=== PATIENT | female | born 1975 | race Caucasian/White ===

== ENCOUNTER 2021-09-07 10:07 | Emergency (ER) | payer OTHER, SELFPAY ==
--- NOTE | ~2021-09-07 | US_ITS ---
EXAMINATION: US soft tissue LE RT INDICATION: Left calf pain TECHNIQUE: Targeted high-resolution ultrasound is performed in the area of clinical concern. COMPARISON: None available FINDINGS: There is moderate soft tissue edema in the area of clinical interest. An approximately 12 m m x 5 mm fluid collection is seen in the subcutaneous tissues which appears to connect to a tract to the skin surface. No large drainable abscess is identified. IMPRESSION: 1. Tiny focal fluid collection in the left calf in the area of clinical concern with apparent tract t o the skin surface, likely soft tissue infection with associated focal fluid collection. Reviewed, dictated and finalized at location [facility]. IMPRESSION: 1. Tiny focal fluid collection in the left calf in the area of clinical concern with apparent tract to the skin surface, likely soft tissue infection with ass ociated focal fluid collection.
[2021-09-07 10:26] VITALS: BP 122/64; PULSE 97; RESP 16; TEMP 36.4; O2SAT 96
--- NOTE | 2021-09-07 12:36 | ED.SKABFB ---
HPI - Skin/Abscess/Foreign Bdy General Chief complaint: Skin/Abscess/Foreign Body Stated complaint: insect bite to calf Time Seen by Provider: 09/07/21 12:19 Source: RN notes reviewed History of Present Illness HPI narrative: Patient presents emergency department from home for right calf pain. Patient states that 2 nights ago she awoke with a painful bump over her right posterior calf she is unsure if she had bit or stung by any insects states initially the area was very itchy she states that since that time the area has become hard and is tender to palpation with redness extending down her lower leg she denies any fevers or chills she denies any known trauma or injury to the area she denies any pain of the knee or ankle states she did take Tylenol this morning with minimal relief Related Data Allergies Allergy/AdvReac Type Severity Reaction Status Date / Time No Known Allergies Allergy Verified 09/07/21 11:15 Review of Systems Review of Systems: Gen.: Denies fevers or chills Respiratory: Denies shortness of breath CV: Denies chest pain GI: Denies abdominal pain nausea, emesis Musculoskeletal: Denies joint pain Neuro: Denies numbness, tingling, weakness or focal weakness Skin: See HPI Except as documented, all other systems reviewed and negative PMFSH Past Medical History Medical History (Updated 09/07/21 @ 14:13 by Mark Lopez DO) Hypertension Social History Social History (Updated 09/07/21 @ 12:37 by Mark Lopez DO) Smoking status: Never smoker Exam Narrative: APPEARANCE: No acute distress, nontoxic, resting in bed Eyes: EOMI HEENT: Normocephalic, atraumatic, RESPIRATORY: No respiratory distress MUSCULOSKELETAl: The right posterior calf has a firm red raised area that has no fluctuance and has no active drainage there does appear to be a small head of pus with no active drainage erythema extends around the right calf down the right posterior leg but stops proximal to the ankle erythema is not circumferential and does not go to the lateral medial or anterior aspect of the leg there is no streaking up the leg dorsalis pedis pulse 2+ neurovascular intact NEURO: Awake and alert. Following commands, speech normal, no focal deficits SKIN:: Warm, dry. Normal Color no rash or lesions Course Course Emergency Course: Discussed with patient results of workup and diagnosis. Discussed need for follow-up with primary care, proper use of medication, and reasons to return to the emergency department. Patient understands and agrees to current treatment plan Vital Signs Vital signs: Vital Signs Temperature 97.5 F L 09/07/21 10:26 Pulse Rate 97 09/07/21 10:26 Respiratory Rate 16 09/07/21 10:26 Blood Pressure 122/64 09/07/21 10:26 Pulse Oximetry 96 09/07/21 10:26 Oxygen Delivery Room Air 09/07/21 10:26 Temperature 97.5 F L 09/07/21 10:26 Pulse Rate 97 09/07/21 10:26 Respiratory Rate 16 09/07/21 10:26 Blood Pressure 122/64 09/07/21 10:26 Pulse Oximetry 96 09/07/21 10:26 Oxygen Delivery Room Air 09/07/21 10:26 Procedures Abscess I/D other: Abcess I&D Additional Comments: Verbal consent was obtained prior to procedure. The abscess was incised with a 18-gauge needle to deroofed the top of the abscess. There was return of approximately 1-2 mL of thick purulent drainage. Patient tolerated the procedure well MDM - Skin/Abscess/Foreign Bdy Lab Data Result diagrams: 09/07/21 13:12 09/07/21 13:12 Labs: Lab Results 09/07/21 09/07/21 09/07/21 Range/Units 13:12 13:12 13:12 WBC 11.1 H (4.5-10.0) K/mm3 RBC 3.89 L (4.2-5.4) M/mm3 Hgb 11.6 L (12.0-15.0) g/dL Hct 38.1 (37.0-47.0) % MCV 97.9 (80-100) fl MCH 29.8 (26-34) pg MCHC 30.4 L (32-36) g/dl RDW 15.0 H (11.5-14.5) % Plt Count 319 (150-375) k/mm3 MPV 9.5 (7.4-10.4) fl Immature Gran % (Auto) 0.5 (0-0.5) % Neut % (Auto) 78
[2021-09-07] MEDS: IBUPROFEN 600 MG TABLET PO (13:08)
[2021-09-07 13:20] LABS: Basophils Percent Auto 0.3 % (0.2-1.2); Eosinophils Absolute Auto 0.1 K/mm3 (0-0.3); Eosinophils Percent Auto 0.6 % (0-4.4); Hematocrit 38.1 % (37.0-47.0); Hemoglobin 11.6 g/dL (12.0-15.0); Immature Granulocyte Absolute 0.06 K/mm3 (0.00-0.031); Immature Granulocyte Percent A 0.5 % (0-0.5); Lymphocytes Absolute Auto 1.38 K/mm3 (0.9-3.2); Lymphocytes Percent Auto 12.5 % (18.3-44.2); Mean Corpuscular HGB Conc 30.4 g/dl (32-36); Mean Corpuscular Hemoglobin 29.8 pg (26-34); Mean Corpuscular Volume 97.9 fl (80-100); Mean Platelet Volume 9.5 fl (7.4-10.4); Monocytes Absolute Auto 0.9 K/mm3 (0.1-0.6); Monocytes Percent Auto 7.9 % (2.6-8.5); Neutrophils Absolute Auto 8.7 K/mm3 (1.3-6.7); Neutrophils Percent Auto 78.2 % (45.5-73.1); Platelet Count Result 319 k/mm3 (150-375); Red Blood Count 3.89 M/mm3 (4.2-5.4); White Blood Count 11.1 K/mm3 (4.5-10.0)
[2021-09-07 13:28] LABS: Alanine Aminotransferase 25 U/L (6-35); Albumin Level 4.3 g/dL (3.5-5.1); Alkaline Phosphatase 95 U/L (38-126); Anion Gap 5 mmol/L (8-16); Aspartate Amino Transferase 23 U/L (14-36); Bilirubin,Total 0.3 mg/dL (0.2-1.3); Blood Urea Nitrogen 14 mg/dL (7-17); Calcium 9.3 mg/dL (8.4-10.2); Carbon Dioxide 29 mmol/L (22-30); Chloride 104 mmol/L (98-107); Estimated CRCL calculation 84 ml/min; Estimated Glomerular Filt Rate > 60; Glucose 126 mg/dL (65-110); Potassium 4.2 mmol/L (3.4-5.0); Sodium 138 mmol/L (137-145)
[2021-09-07] MEDS: CLINDAMYCIN HCL 150 MG CAP 450 MG PO (13:43)
[2021-09-07 14:22] VITALS: BP 130/70; PULSE 94; RESP 20; O2SAT 95
== END 2021-09-07 12:22 | disposition home or self-care (01) ==
PROVIDERS: Emergency Provider Emergency Medicine; PCP Nurse Practitioner Family
DX: L03.115 Cellulitis of right lower limb (principal); I10 Essential (primary) hypertension
CPT/HCPCS: 10060; 10160; 36415; 76882; 80053; 83605; 85025; 99284; A9270

== ENCOUNTER 2021-09-10 00:56 | Inpatient (IN) | payer OTHER, SELFPAY ==
[2021-09-10] VITALS (7 sets, daily range): BP systolic 129–149; BP diastolic 47–75; PULSE 73–97; RESP 16–18; TEMP 36.1–36.4; O2SAT 95–97
--- NOTE | ~2021-09-10 | US_ITS ---
US soft tissue LE RT DATE: 09/13/2021 12:03 INDICATION: Calf pain, right calf fluid collection TECHNIQUE: Real-time and color flow imaging of the soft tissues of the right calf COMPARISON: 09/07/2021 ultrasound of the soft tissues of the right lower extremity FINDINGS: There is soft tissue edema of the calf, extending into the ankle. There is an approximately 4 x 5.4 mm area of prominently vascular soft tissue surrounded by a rim of fluid. IMPRESSION: Small prevascular soft tissue density in the area of interest with peripheral rim of flui d, posterior right calf, with edema, this area extending into the calf Reviewed, dictated and finalized at [facility]. Reviewed, dictated and finalized at location [facility]. IMPRESSION: Small prevascular soft tissue density in the area of interest with peripheral rim of fluid, posterior right calf, with edema, this area extending into the calf
--- NOTE | 2021-09-10 01:22 | ED.GENADULT ---
HPI - General Adult General Chief complaint: Skin/Abscess/Foreign Body Stated complaint: R leg pain/redness, celllitis Time Seen by Provider: 09/10/21 01:14 History of Present Illness HPI narrative: 46-year-old female presented the emergency department for evaluation of worsening infection to her right lower leg. Patient was evaluated on Thursday for an abscess. Abscess was draining spontaneously, abscess was manipulated by the physician and had further discharge. Patient was started on clindamycin. Patient states since Thursday she has had worsening redness and swelling of the lower extremities. Patient states that she did have erythema down her calf but did not go past her ankle. Patient states that the redness has gone to her foot and is now circumferential for the lower extremity. Related Data Home Medications Medication Instructions Recorded Confirmed 24Hour Allergy 1 tablet PO DAILY 09/10/21 09/10/21 Adults Multivitamin 1 tablet PO DAILY 09/10/21 09/10/21 duloxetine 30 mg capsule,delayed 2 cap PO HS 09/10/21 09/10/21 release fluticasone propionate 50 1 spray intranasal DAILY 09/10/21 09/10/21 mcg/actuation nasal spray,suspension lisinopril 20 mg tablet 20 mg PO DAILY 09/10/21 09/10/21 Allergies Allergy/AdvReac Type Severity Reaction Status Date / Time No Known Allergies Allergy Verified 09/10/21 01:17 Review of Systems Review of Systems: CONSTITUTIONAL: Denies fever, chills, or sweats. EYES: Denies visual changes, redness, or discharge. ENT: Denies rhinorrhea, congestion, sore throat, or otalgia. CARDIOVASCULAR: Denies chest pain, palpitations, or edema. RESPIRATORY: Denies cough or dyspnea. GASTROINTESTINAL: Denies abdominal pain, nausea, vomiting, or diarrhea. GENITOURINARY: Denies dysuria or hematuria. SKIN: See HPI MUSCULOSKELETAL: Denies back pain, joint pain, or myalgia. NEUROLOGIC: Denies headache, numbness, or weakness. [facility] Past Medical History Medical History (Updated 09/10/21 @ 02:55 by Max Hughes MD) Hypertension Social History Social History (Updated 09/07/21 @ 12:37 by Mark Lopez DO) Smoking status: Never smoker Alcohol intake: current Substance use: never Spiritual care concerns: No Exam Narrative: APPEARANCE: Well appearing, no pain, no distress, well-nourished. HEAD: normocephalic, atraumatic. EYES: PERRLA/EOMI, conjunctivae clear. NOSE: Normal no drainage NECK: Supple. No adenopathy, no masses. RESPIRATORY: Airway patent, respirations nonlabored. Clear to auscultation bilaterally, no rales, rhonchi, wheezing. CARDIOVASCULAR: Regular rate and rhythm without murmurs rubs or gallops. ABDOMINAL: Soft, nontender, nondistended, normal bowel sounds MUSCULOSKELETAL: Moves all extremities. Strength/ROM intact, No edema, No calf tenderness. NEURO: Alert. Cranial nerves II through XII intact. Good gait. Good coordination SKIN: Erythema on right lower extremity is spread from proximal calf down to foot and is circumferential anteriorly PSYCHIATRIC: Normal affect/mood. Course Course Emergency Course: Patient was started on Vanco and cefazolin due to her lack of response to the clindamycin. Bedside ultrasound showed an abscess amenable to drainage. This was incised with 11 blade and packed with iodoform gauze. A small amount of purulent discharge was obtained. Case was discussed with the hospitalist and patient was admitted for further IV antibiotics. Vital Signs Vital signs: Vital Signs Temperature 97.6 F 09/10/21 01:02 Pulse Rate 97 09/10/21 01:02 Respiratory Rate 16 09/10/21 01:02 Blood Pressure 149/75 H 09/10/21 01:02 Pulse Oximetry 97 09/10/21 01:02 Oxygen Delivery Room Air 09/10/21 01:02 Temperature 96.9 F L 09/10/21 06:00 Pulse Rate 73 09/10/21 06:00 Respiratory Rate 16 09/10/21 06:00 Blood Pressure 134/65 09/10/21 06:00 Pulse Oximetry 96 09/10/21 06:00 Oxygen Delivery Room Air 09/10/21 01:02
[2021-09-10 01:37] LABS: Basophils Percent Auto 0.4 % (0.2-1.2); Eosinophils Absolute Auto 0.2 K/mm3 (0-0.3); Eosinophils Percent Auto 3.1 % (0-4.4); Hematocrit 33.9 % (37.0-47.0); Hemoglobin 10.6 g/dL (12.0-15.0); Immature Granulocyte Absolute 0.05 K/mm3 (0.00-0.031); Immature Granulocyte Percent A 0.7 % (0-0.5); Lymphocytes Absolute Auto 1.64 K/mm3 (0.9-3.2); Lymphocytes Percent Auto 21.8 % (18.3-44.2); Mean Corpuscular HGB Conc 31.3 g/dl (32-36); Mean Corpuscular Hemoglobin 29.9 pg (26-34); Mean Corpuscular Volume 95.5 fl (80-100); Mean Platelet Volume 9.1 fl (7.4-10.4); Monocytes Absolute Auto 0.6 K/mm3 (0.1-0.6); Monocytes Percent Auto 7.6 % (2.6-8.5); Neutrophils Percent Auto 66.4 % (45.5-73.1); Platelet Count Result 328 k/mm3 (150-375); Red Blood Count 3.55 M/mm3 (4.2-5.4); Red Cell Distribution Width 14.4 % (11.5-14.5); White Blood Count 7.5 K/mm3 (4.5-10.0)
[2021-09-10 01:47] LABS: Alanine Aminotransferase 30 U/L (6-35); Alkaline Phosphatase 100 U/L (38-126); Anion Gap 7 mmol/L (8-16); Aspartate Amino Transferase 27 U/L (14-36); Bilirubin,Total < 0.1 mg/dL (0.2-1.3); Blood Urea Nitrogen 11 mg/dL (7-17); Calcium 9.5 mg/dL (8.4-10.2); Carbon Dioxide 25 mmol/L (22-30); Chloride 106 mmol/L (98-107); Estimated CRCL calculation 106 ml/min; Estimated Glomerular Filt Rate > 60; Glucose 116 mg/dL (65-110); Lactic Acid Reflex 0.9 mmol/L (0.7-2.0); Potassium 3.8 mmol/L (3.4-5.0); Sodium 138 mmol/L (137-145)
--- NOTE | 2021-09-10 02:53 | PC.NURSE ---
Pt requesting pain medication, EDP Saul notified.
--- NOTE | 2021-09-10 03:03 | PC.NURSE ---
EDP at bedside with ultrasound
--- NOTE | 2021-09-10 03:52 | PC.NURSE ---
EDP at bedside for I&D
[2021-09-10 04:25] LABS: SARS-CoV-2 RNA PCR Negative
--- NOTE | 2021-09-10 04:48 | ADMGEN ---
This patient, Jennifer Winter, was admitted to [facility] Surg Room 330-02. Patient/family oriented to hospital policies and general routines including ID bracelet, bed and alarms, visiting hours, pain management, procedures, bathroom and other care routines, personal items, smoking policy, room service/diet, and visiting hours. Information on how to activate the Rapid Response Team has been discussed. Patient/Family are encouraged to report perceived risks to care and to ask questions if they do not understand what they are told or what they should do.
[2021-09-10] MEDS: HYDROcodone/acetaminophen (*CRX) 5-325 MG TABLET 1 TAB PO ×3 (09:40→19:34)
[2021-09-10] MEDS: MULTIVITAMINS THERAPEUTIC TAB (*BKC) 1 TABLET PO (10:26)
[2021-09-10] MEDS: FLUTICASONE PROPIONATE 0.05% NA SPR 16 GM BTL (*BKC) 1 SPRAY NASAL (10:27)
[2021-09-10] MEDS: lisinopriL 20 MG TABLET PO (10:27)
[2021-09-10] MEDS: LORATADINE 10 MG TABLET PO (10:28)
[2021-09-10] MEDS: CYCLOBENZAPRINE HCL 10 MG TABLET PO (13:22)
--- NOTE | 2021-09-10 17:40 | PM.IMHP ---
H&P: HPI History of Present Illness Date/Time: 09/10/21 17:40 Chief Complaint: abscess and cellulitis right lower extremity Narrative: HPI narrative: 46-year-old female presented the emergency department for evaluation of worsening infection to her right lower leg.? Patient was evaluated on Thursday for an abscess.? Abscess was draining spontaneously, abscess was manipulated by the physician and had further discharge.? Patient was started on clindamycin.? Patient states since Thursday she has had worsening redness and swelling of the lower extremities.? Patient states that she did have erythema down her calf but did not go past her ankle.? Patient states that the redness has gone to her foot and is now circumferential for the lower extremity. patient continue to come of pain and swelling and right lower extremity, denies any fever, patient being treated cefazolin and vancomycin, unfortunate wound culture was not collected at the time of I and D, will follow on blood cultures and further recommendation to follow will continue to monitor. patient admitted inpatient, patient will stay in hospital for 2 midnights with abscess and cellulitis Review of Systems Review of Systems: CONSTITUTIONAL: Denies fever, chills, or sweats. EYES: Denies visual changes, redness, or discharge. ENT: Denies rhinorrhea, congestion, sore throat, or otalgia. CARDIOVASCULAR: Denies chest pain, palpitations, or edema. RESPIRATORY: Denies cough or dyspnea. GASTROINTESTINAL: Denies abdominal pain, nausea, vomiting, or diarrhea. GENITOURINARY: Denies dysuria or hematuria. SKIN: See HPI MUSCULOSKELETAL: Denies back pain, joint pain, or myalgia. NEUROLOGIC: Denies headache, numbness, or weakness. [facility] Past Medical History Medical History (Updated 09/10/21 @ 02:55 by Max Hughes MD) Hypertension Social History Social History (Updated 09/07/21 @ 12:37 by Mark Lopez DO) Smoking status: Never smoker Alcohol intake: current Substance use: never Spiritual care concerns: No Meds Home Medications and Allergies Home Medications Medication Instructions Recorded Confirmed Type clindamycin HCl 150 mg capsule 450 mg PO Q8H 10 days #90 caps 09/07/21 09/10/21 Rx ibuprofen 600 mg tablet (IBU) 600 mg PO Q6H PRN pain #20 tabs 09/07/21 09/10/21 Rx 24Hour Allergy 1 tablet PO DAILY 09/10/21 09/10/21 History Adults Multivitamin 1 tablet PO DAILY 09/10/21 09/10/21 History duloxetine 30 mg capsule,delayed 2 cap PO HS 09/10/21 09/10/21 History release fluticasone propionate 50 1 spray intranasal DAILY 09/10/21 09/10/21 History mcg/actuation nasal spray,suspension lisinopril 20 mg tablet 20 mg PO DAILY 09/10/21 09/10/21 History Allergies Allergy/AdvReac Type Severity Reaction Status Date / Time No Known Allergies Allergy Verified 09/10/21 01:17 Vital Signs Vital Signs - 24 hr 09/10/21 01:02 09/10/21 02:54 09/10/21 04:13 Temperature 97.6 F Pulse Rate 97 86 76 Respiratory Rate 16 18 16 Blood Pressure 149/75 H 134/54 L 149/70 H Pulse Oximetry 97 95 97 Oxygen Delivery Room Air 09/10/21 06:00 09/10/21 14:17 09/10/21 09:00 Temperature 96.9 F L 97 F L Pulse Rate 73 82 Respiratory Rate 16 16 Blood Pressure 134/65 129/47 L Pulse Oximetry 96 97 Oxygen Delivery Room Air Exam Narrative: morbidly obese Patient is comfortable, NAD HEENT: eyes are clear and none icteric LUNGS: normal respiratory effort ABD: distended Lower extremities: no edema SKIN: nonjaundiced Neuro: grossly intact. H&P: Results Labs Labs: Short CBC 09/10/21 Range/Units 01:30 WBC 7.5 (4.5-10.0) K/mm3 Hgb 10.6 L (12.0-15.0) g/dL Hct 33.9 L (37.0-47.0) % Plt Count 328 (150-375) k/mm3 BMP 09/10/21 01:30 Sodium 138 Potassium 3.8 Chloride 106 Carbon Dioxide 25 BUN 11 Creatinine 0.70 Glucose 116 H Calcium 9.5 Liver Function 09/10/21 Range/Units 01:30 Total Bilirub
[2021-09-10] MEDS: HEPARIN SODIUM 5,000 UNITS/ML VIAL 5000 UNITS SUB-Q (20:14)
[2021-09-10] MEDS: DULoxetine HCL 60 MG CAPSULE.DR PO (20:14)
[2021-09-11] MEDS: HYDROcodone/acetaminophen (*CRX) 5-325 MG TABLET 1 TAB PO ×3 (03:08→13:34)
[2021-09-11 05:56] VITALS: BP 138/70; PULSE 75; RESP 16; TEMP 36.4; O2SAT 95
[2021-09-11 06:28] LABS: Hematocrit 34.1 % (37.0-47.0); Hemoglobin 10.7 g/dL (12.0-15.0); Mean Corpuscular HGB Conc 31.4 g/dl (32-36); Mean Corpuscular Hemoglobin 29.8 pg (26-34); Mean Platelet Volume 9.5 fl (7.4-10.4); Platelet Count Result 359 k/mm3 (150-375); Red Blood Count 3.59 M/mm3 (4.2-5.4); Red Cell Distribution Width 14.3 % (11.5-14.5); White Blood Count 5.8 K/mm3 (4.5-10.0)
[2021-09-11 06:33] LABS: Anion Gap 6 mmol/L (8-16); Blood Urea Nitrogen 9 mg/dL (7-17); Calcium 8.9 mg/dL (8.4-10.2); Carbon Dioxide 28 mmol/L (22-30); Chloride 103 mmol/L (98-107); Estimated CRCL calculation 106 ml/min; Estimated Glomerular Filt Rate > 60; Glucose 131 mg/dL (65-110); Sodium 137 mmol/L (137-145)
[2021-09-11] MEDS: FLUTICASONE PROPIONATE 0.05% NA SPR 16 GM BTL (*BKC) 1 SPRAY NASAL (08:11)
[2021-09-11] MEDS: LORATADINE 10 MG TABLET PO (08:11)
[2021-09-11] MEDS: MULTIVITAMINS THERAPEUTIC TAB (*BKC) 1 TABLET PO (08:11)
[2021-09-11] MEDS: HEPARIN SODIUM 5,000 UNITS/ML VIAL 5000 UNITS SUB-Q ×2 (08:11→21:56)
[2021-09-11] MEDS: lisinopriL 20 MG TABLET PO (08:13)
--- NOTE | 2021-09-11 13:08 | PM.IMPN ---
Progress Note: A&P Assessment and Plan (1) Cellulitis: Qualifiers: Laterality: right Site of cellulitis: extremity Site of cellulitis of extremity: lower extremity Qualified Code(s): L03.115 - Cellulitis of right lower limb Code(s): L03.90 - Cellulitis, unspecified Status: Acute Assessment and Plan: Continue IV antibiotics. (2) Abscess of skin or subcutaneous tissue: Qualifiers: Laterality: right Site of cutaneous abscess: extremity Site of cutaneous abscess of extremity: lower extremity Qualified Code(s): L02.415 - Cutaneous abscess of right lower limb Code(s): L02.91 - Cutaneous abscess, unspecified Status: Acute Assessment and Plan: spontaneous drainage continue IV antibiotics (3) Hypertension: Code(s): I10 - Essential (primary) hypertension Status: Acute Assessment and Plan: monitor blood pressure Subjective Date/time seen: 09/11/21 13:08 no new complaints. Exam Narrative: morbidly obese Patient is comfortable, NAD HEENT: eyes are clear and none icteric LUNGS: normal respiratory effort ABD: distended Lower extremities: no edema SKIN: nonjaundiced Neuro: grossly intact. Objective Data Vital Signs Vital Signs: Vital Signs - 24 hr 09/10/21 14:17 09/10/21 21:42 09/10/21 20:00 Temperature 97 F L 97.5 F L Pulse Rate 82 82 82 Respiratory Rate 16 18 18 Blood Pressure 129/47 L 145/73 H Pulse Oximetry 97 97 97 Oxygen Delivery Room Air 09/11/21 05:56 09/11/21 08:00 Temperature 97.6 F Pulse Rate 75 Respiratory Rate 16 Blood Pressure 138/70 Pulse Oximetry 95 Oxygen Delivery Room Air Intake/Output Intake/Output: Intake & Output 09/08/21 09/09/21 09/10/21 09/11/21 23:59 23:59 23:59 23:59 Intake Total 2430 200 Balance 2430 200 Meds/Results Medications: Active Medications Generic Name Dose Route Start Last Admin Trade Name Freq PRN Reason Stop Dose Admin Hydrocodone Bitart/Acetaminophen 1 tab 09/10/21 15:24 09/11/21 08:06 Hydrocodone/Acetaminophen (*Crx) 5-325 Mg Tablet PO 1 tab Q4H PRN Administration Pain Rated 4-6 Cyclobenzaprine HCl 10 mg 09/10/21 09:15 09/10/21 13:22 Cyclobenzaprine Hcl 10 Mg Tablet PO 10 mg Q8H PRN Administration Muscle Spasm Duloxetine HCl 60 mg 09/10/21 21:00 09/10/21 20:14 Duloxetine Hcl 60 Mg Capsule.Dr PO 60 mg HS MASON Administration Fluticasone Propionate 1 spray 09/10/21 09:25 09/11/21 08:11 Fluticasone Propionate 0.05% Na Spr 16 Gm Btl (*Bkc) NASAL 1 spray DAILY MASON Administration Heparin Sodium (Porcine) 5,000 units 09/10/21 21:00 09/11/21 08:11 Heparin Sodium 5,000 Units/Ml Vial SUB-Q 5,000 units Q12HR MASON Administration Vancomycin HCl 1,750 mg in 500 mls @ 250 mls/hr 09/10/21 02:00 09/11/21 02:00 Vancomycin 1,750 Mg/D5w 500 Ml IVPB 250 mls/hr Q12H MASON Administration Cefazolin Sodium 1 gm in 50 mls @ 100 mls/hr 09/10/21 14:00 09/11/21 05:09 Ancef 1 Gm/D5w 50 Ml Pm IVPB 100 mls/hr Q8H MASON Administration Lisinopril 20 mg 09/10/21 09:25 09/11/21 08:13 Lisinopril 20 Mg Tablet PO 20 mg DAILY MASON Administration Loratadine 10 mg 09/10/21 09:30 09/11/21 08:11 Loratadine 10 Mg Tablet PO 10 mg QAM MASON Administration Multivitamins Therapeutic 1 tablet 09/10/21 09:20 09/11/21 08:11 Multivitamins Therapeutic Tab (*Bkc) PO 1 tablet DAILY MASON Administration Ondansetron HCl 4 mg 09/10/21 02:55 Ondansetron Inj 4 Mg/2 Ml Vial IV PUSH Q4H PRN Nausea Labs Labs: Laboratory Results - last 24 hr 09/11/21 09/11/21 05:51 05:51 WBC 5.8 RBC 3.59 L Hgb 10.7 L Hct 34.1 L MCV 95.0 MCH 29.8 MCHC 31.4 L RDW 14.3 Plt Count 359 MPV 9.5 Sodium 137 Potassium 4.0 Chloride 103 Carbon Dioxide 28 Anion Gap 6 L BUN 9 Creatinine 0.70 Estim Creat Clear Calc 106 Estimated GFR > 60
[2021-09-11 13:31] LABS: Vancomycin Trough 12.7 ug/mL (10.0-20.0)
[2021-09-11 14:00] VITALS: BP 89/58; PULSE 77; RESP 20; TEMP 36; O2SAT 98
[2021-09-11] MEDS: HYDROcodone/acetaminophen (*CRX) 7.5-325 MG TABLET 1 TAB PO (18:03)
[2021-09-11 20:58] VITALS: BP 112/69; PULSE 79; RESP 18; TEMP 36.4; O2SAT 96
[2021-09-11] MEDS: DULoxetine HCL 60 MG CAPSULE.DR PO (21:56)
[2021-09-11] MEDS: CYCLOBENZAPRINE HCL 10 MG TABLET PO (22:08)
[2021-09-12] MEDS: HYDROcodone/acetaminophen (*CRX) 7.5-325 MG TABLET 1 TAB PO ×3 (01:36→17:29)
[2021-09-12 05:33] VITALS: BP 129/79; PULSE 81; RESP 18; TEMP 36.1; O2SAT 95
[2021-09-12 07:18] LABS: Hematocrit 36.8 % (37.0-47.0); Hemoglobin 11.3 g/dL (12.0-15.0); Mean Corpuscular HGB Conc 30.7 g/dl (32-36); Mean Corpuscular Hemoglobin 30.1 pg (26-34); Mean Corpuscular Volume 97.9 fl (80-100); Mean Platelet Volume 9.2 fl (7.4-10.4); Platelet Count Result 359 k/mm3 (150-375); Red Blood Count 3.76 M/mm3 (4.2-5.4); Red Cell Distribution Width 14.4 % (11.5-14.5); White Blood Count 6.8 K/mm3 (4.5-10.0)
[2021-09-12 07:24] LABS: Anion Gap 3 mmol/L (8-16); Blood Urea Nitrogen 9 mg/dL (7-17); Calcium 8.9 mg/dL (8.4-10.2); Carbon Dioxide 30 mmol/L (22-30); Chloride 103 mmol/L (98-107); Estimated CRCL calculation 122 ml/min; Estimated Glomerular Filt Rate > 60; Glucose 108 mg/dL (65-110); Potassium 3.9 mmol/L (3.4-5.0); Sodium 136 mmol/L (137-145)
[2021-09-12] MEDS: HEPARIN SODIUM 5,000 UNITS/ML VIAL 5000 UNITS SUB-Q ×2 (09:19→20:52)
[2021-09-12] MEDS: MULTIVITAMINS THERAPEUTIC TAB (*BKC) 1 TABLET PO (09:19)
[2021-09-12] MEDS: lisinopriL 20 MG TABLET PO (09:19)
[2021-09-12] MEDS: LORATADINE 10 MG TABLET PO (09:19)
[2021-09-12] MEDS: FLUTICASONE PROPIONATE 0.05% NA SPR 16 GM BTL (*BKC) 1 SPRAY NASAL (09:23)
[2021-09-12] MEDS: HYDROcodone/acetaminophen (*CRX) 5-325 MG TABLET 1 TAB PO ×2 (12:30→21:51)
[2021-09-12 14:00] VITALS: BP 133/69; PULSE 77; RESP 14; TEMP 36.3; O2SAT 95
--- NOTE | 2021-09-12 15:03 | PCCCNOTE ---
On 09/12/21, the student, [Mary Shah], provided care and completed [facility] documentation on this patient. I have reviewed the student's documentation and agree with the findings.
[2021-09-12] MEDS: DULoxetine HCL 60 MG CAPSULE.DR PO (20:53)
[2021-09-12] MEDS: CYCLOBENZAPRINE HCL 10 MG TABLET PO (20:57)
[2021-09-12 22:00] VITALS: BP 128/66; PULSE 75; RESP 16; TEMP 36.5; O2SAT 94
[2021-09-13] MEDS: HYDROcodone/acetaminophen (*CRX) 7.5-325 MG TABLET 1 TAB PO ×4 (01:39→21:15)
[2021-09-13 06:00] VITALS: BP 114/73; PULSE 71; RESP 18; TEMP 36.1; O2SAT 94
[2021-09-13] MEDS: CYCLOBENZAPRINE HCL 10 MG TABLET PO ×2 (06:08→19:50)
[2021-09-13 06:23] LABS: Hematocrit 36.1 % (37.0-47.0); Hemoglobin 11.3 g/dL (12.0-15.0); Mean Corpuscular HGB Conc 31.3 g/dl (32-36); Mean Corpuscular Hemoglobin 30.2 pg (26-34); Mean Corpuscular Volume 96.5 fl (80-100); Mean Platelet Volume 9.3 fl (7.4-10.4); Platelet Count Result 359 k/mm3 (150-375); Red Blood Count 3.74 M/mm3 (4.2-5.4); Red Cell Distribution Width 14.3 % (11.5-14.5); White Blood Count 6.2 K/mm3 (4.5-10.0)
[2021-09-13 07:53] LABS: Anion Gap 4 mmol/L (8-16); Blood Urea Nitrogen 12 mg/dL (7-17); Carbon Dioxide 29 mmol/L (22-30); Chloride 104 mmol/L (98-107); Estimated CRCL calculation 106 ml/min; Estimated Glomerular Filt Rate > 60; Glucose 115 mg/dL (65-110); Potassium 4.3 mmol/L (3.4-5.0); Sodium 137 mmol/L (137-145)
--- NOTE | 2021-09-13 08:24 | PM.IMPN ---
Progress Note: A&P Assessment and Plan (1) Cellulitis: Qualifiers: Laterality: right Site of cellulitis: extremity Site of cellulitis of extremity: lower extremity Qualified Code(s): L03.115 - Cellulitis of right lower limb Code(s): L03.90 - Cellulitis, unspecified Status: Acute Assessment and Plan: Right lower extremity. Some improvement of related with her ankle is still pretty red and inflamed. Continue IV antibiotics. Will get ultrasound to rule out abscess. Consider surgical evaluation. (2) Hypertension: Code(s): I10 - Essential (primary) hypertension Status: Acute Assessment and Plan: Continue home medications. Subjective Date/time seen: 09/12/21 08:24 Little improvement thus far. Review of Systems Review of Systems: 10 point ROS negative except as stated in HPI / Subjective Exam Narrative: General: alert and oriented Psych: appropriate mood nad affect Eyes: PERRLA Neck: Trachea midline, no new lesions Skin: no changes Lungs: CTA Cardiac: Normal S1,S2, no MGR ABD: soft, nd, nt, nbs Ext: no new lesions, no cce Vasc: Pulses intact Objective Data Vital Signs Vital Signs: Vital Signs - 24 hr 09/12/21 14:00 09/12/21 22:00 09/12/21 20:00 Temperature 97.4 F L 97.7 F Pulse Rate 77 75 Respiratory Rate 14 16 Blood Pressure 133/69 128/66 Pulse Oximetry 95 94 Oxygen Delivery Room Air 09/13/21 06:00 Temperature 97.0 F L Pulse Rate 71 Respiratory Rate 18 Blood Pressure 114/73 Pulse Oximetry 94 Oxygen Delivery Intake/Output Intake/Output: Intake & Output 09/10/21 09/11/21 09/12/21 09/13/21 23:59 23:59 23:59 23:59 Intake Total 2430 2730 3000 1100 Output Total 500 1400 Balance 2430 2230 1600 1100 Meds/Results Medications: Active Medications Generic Name Dose Route Start Last Admin Trade Name Freq PRN Reason Stop Dose Admin Hydrocodone Bitart/Acetaminophen 1 tab 09/10/21 15:24 09/12/21 21:51 Hydrocodone/Acetaminophen (*Crx) 5-325 Mg Tablet PO 1 tab Q4H PRN Administration Pain Rated 4-6 Hydrocodone Bitart/Acetaminophen 1 tab 09/11/21 13:52 09/13/21 07:23 Hydrocodone/Acetaminophen (*Crx) 7.5-325 Mg Tablet PO 1 tab Q6H PRN Administration Pain Rated 7-10 Cyclobenzaprine HCl 10 mg 09/10/21 09:15 09/13/21 06:08 Cyclobenzaprine Hcl 10 Mg Tablet PO 10 mg Q8H PRN Administration Muscle Spasm Duloxetine HCl 60 mg 09/10/21 21:00 09/12/21 20:53 Duloxetine Hcl 60 Mg Capsule.Dr PO 60 mg HS MASON Administration Fluticasone Propionate 1 spray 09/10/21 09:25 09/12/21 09:23 Fluticasone Propionate 0.05% Na Spr 16 Gm Btl (*Bkc) NASAL 1 spray DAILY MASON Administration Heparin Sodium (Porcine) 5,000 units 09/10/21 21:00 09/12/21 20:52 Heparin Sodium 5,000 Units/Ml Vial SUB-Q 5,000 units Q12HR MASON Administration Vancomycin HCl 1,750 mg in 500 mls @ 250 mls/hr 09/10/21 02:00 09/13/21 03:40 Vancomycin 1,750 Mg/D5w 500 Ml IVPB Infused Q12H MASON Infusion Cefazolin Sodium 1 gm in 50 mls @ 100 mls/hr 09/10/21 14:00 09/13/21 06:37 Ancef 1 Gm/D5w 50 Ml Pm IVPB Infused Q8H MASON Infusion Lisinopril 20 mg 09/10/21 09:25 09/12/21 09:19 Lisinopril 20 Mg Tablet PO 20 mg DAILY MASON Administration Loratadine 10 mg 09/10/21 09:30 09/12/21 09:19 Loratadine 10 Mg Tablet PO 10 mg QAM MASON Administration Multivitamins Therapeutic 1 tablet 09/10/21 09:20 09/12/21 09:19 Multivitamins Therapeutic Tab (*Bkc) PO 1 tablet DAILY MASON Administration Ondansetron HCl 4 mg 09/10/21 02:55 Ondansetron Inj 4 Mg/2 Ml Vial IV PUSH Q4H PRN Nausea Labs Labs: Laboratory Results - last 24 hr 09/13/21 09/13/21 05:55 05:55 WBC 6.2 RBC 3.74 L Hgb 11.3 L Hct 36.1 L MCV 96.5 MCH 30.2 MCHC 31.3 L RDW 14.3 Plt Count 359 MPV 9.3 Sodium 137 Potassium 4.3 Chloride 104 Carbon Dioxide 29
[2021-09-13] MEDS: MULTIVITAMINS THERAPEUTIC TAB (*BKC) 1 TABLET PO (08:42)
[2021-09-13] MEDS: FLUTICASONE PROPIONATE 0.05% NA SPR 16 GM BTL (*BKC) 1 SPRAY NASAL (08:43)
[2021-09-13] MEDS: HEPARIN SODIUM 5,000 UNITS/ML VIAL 5000 UNITS SUB-Q ×2 (08:43→20:42)
[2021-09-13] MEDS: lisinopriL 20 MG TABLET PO (08:43)
[2021-09-13] MEDS: LORATADINE 10 MG TABLET PO (08:43)
--- NOTE | 2021-09-13 11:40 | PM.IMPN ---
Progress Note: A&P Assessment and Plan (1) Cellulitis: Qualifiers: Laterality: right Site of cellulitis: extremity Site of cellulitis of extremity: lower extremity Qualified Code(s): L03.115 - Cellulitis of right lower limb Code(s): L03.90 - Cellulitis, unspecified Status: Acute Assessment and Plan: Right lower extremity. Some improvement of related with her ankle is still pretty red and inflamed. Continue IV antibiotics. Will get ultrasound to rule out abscess. Will have surgery see the patient as well in case she needs I and D or debridement. (2) Hypertension: Code(s): I10 - Essential (primary) hypertension Status: Acute Assessment and Plan: Continue home medications. Subjective Date/time seen: 09/13/21 11:40 Still had little improvement with her lower extremity cellulitis. Still having pain Exam Narrative: General: alert and oriented Psych: appropriate mood nad affect Eyes: PERRLA Neck: Trachea midline, no new lesions Skin: no changes Lungs: CTA Cardiac: Normal S1,S2, no MGR ABD: soft, nd, nt, nbs Ext: no new lesions, no cce Vasc: Pulses intact Objective Data Vital Signs Vital Signs: Vital Signs - 24 hr 09/12/21 14:00 09/12/21 22:00 09/12/21 20:00 Temperature 97.4 F L 97.7 F Pulse Rate 77 75 Respiratory Rate 14 16 Blood Pressure 133/69 128/66 Pulse Oximetry 95 94 Oxygen Delivery Room Air 09/13/21 06:00 Temperature 97.0 F L Pulse Rate 71 Respiratory Rate 18 Blood Pressure 114/73 Pulse Oximetry 94 Oxygen Delivery Intake/Output Intake/Output: Intake & Output 09/10/21 09/11/21 09/12/21 09/13/21 23:59 23:59 23:59 23:59 Intake Total 2430 2730 3000 1340 Output Total 500 1400 Balance 2430 2230 1600 1340 Meds/Results Medications: Active Medications Generic Name Dose Route Start Last Admin Trade Name Freq PRN Reason Stop Dose Admin Hydrocodone Bitart/Acetaminophen 1 tab 09/10/21 15:24 09/12/21 21:51 Hydrocodone/Acetaminophen (*Crx) 5-325 Mg Tablet PO 1 tab Q4H PRN Administration Pain Rated 4-6 Hydrocodone Bitart/Acetaminophen 1 tab 09/11/21 13:52 09/13/21 07:23 Hydrocodone/Acetaminophen (*Crx) 7.5-325 Mg Tablet PO 1 tab Q6H PRN Administration Pain Rated 7-10 Cyclobenzaprine HCl 10 mg 09/10/21 09:15 09/13/21 06:08 Cyclobenzaprine Hcl 10 Mg Tablet PO 10 mg Q8H PRN Administration Muscle Spasm Duloxetine HCl 60 mg 09/10/21 21:00 09/12/21 20:53 Duloxetine Hcl 60 Mg Capsule.Dr PO 60 mg HS MASON Administration Fluticasone Propionate 1 spray 09/10/21 09:25 09/13/21 08:43 Fluticasone Propionate 0.05% Na Spr 16 Gm Btl (*Bkc) NASAL 1 spray DAILY MASON Administration Heparin Sodium (Porcine) 5,000 units 09/10/21 21:00 09/13/21 08:43 Heparin Sodium 5,000 Units/Ml Vial SUB-Q 5,000 units Q12HR MASON Administration Vancomycin HCl 1,750 mg in 500 mls @ 250 mls/hr 09/10/21 02:00 09/13/21 03:40 Vancomycin 1,750 Mg/D5w 500 Ml IVPB Infused Q12H MASON Infusion Cefazolin Sodium 1 gm in 50 mls @ 100 mls/hr 09/10/21 14:00 09/13/21 06:37 Ancef 1 Gm/D5w 50 Ml Pm IVPB Infused Q8H MASON Infusion Lisinopril 20 mg 09/10/21 09:25 09/13/21 08:43 Lisinopril 20 Mg Tablet PO 20 mg DAILY MASON Administration Loratadine 10 mg 09/10/21 09:30 09/13/21 08:43 Loratadine 10 Mg Tablet PO 10 mg QAM MASON Administration Multivitamins Therapeutic 1 tablet 09/10/21 09:20 09/13/21 08:42 Multivitamins Therapeutic Tab (*Bkc) PO 1 tablet DAILY MASON Administration Ondansetron HCl 4 mg 09/10/21 02:55 Ondansetron Inj 4 Mg/2 Ml Vial IV PUSH Q4H PRN Nausea Labs Labs: Laboratory Results - last 24 hr 09/13/21 09/13/21 05:55 05:55 WBC 6.2 RBC 3.74 L Hgb 11.3 L Hct 36.1 L MCV 96.5 MCH 30.2 MCHC 31.3 L RDW 14.3 Plt Count 359 MPV 9.3 Sodium 137 Potassium 4.3 Chloride 104 Carbon Diox
[2021-09-13 13:54] VITALS: BP 142/78; PULSE 84; RESP 18; TEMP 36.1; O2SAT 96
--- NOTE | 2021-09-13 14:46 | PM.CNGS ---
Assessment and Plan Assessment and plan (1) Insect bite (nonvenomous), right lower leg, sequela: Code(s): S80.861S - Insect bite (nonvenomous), right lower leg, sequela; W57.XXXS - Bitten or stung by nonvenomous insect and other nonvenomous arthropods, sequela Status: Acute Assessment and Plan: strongly suspect some type of insect bite probably a spider bite to the back of the right calf resulting in a small abscess and cellulitis. Seems to be responding to IV antibiotics. Cultures from 09/10 show Staph aureus but no sensitivities as yet. Continue vanco and cefazolin for now. Will start silver gel dressings with dry gauze to area daily. Hopefully will resolve without debridement. I do not see any purulent areas to drain or any fluctuance right now. An ultrasound has been done but is not yet read. (2) Cellulitis: Qualifiers: Laterality: right Site of cellulitis: extremity Site of cellulitis of extremity: lower extremity Qualified Code(s): L03.115 - Cellulitis of right lower limb Code(s): L03.90 - Cellulitis, unspecified Status: Acute Assessment and Plan: Continue antibiotics as noted above. Improving. History of Present Illness Consult details Consult date: 09/13/21 Reason for consult: other ( Right calf abscess) Requesting physician: Silverio Turner MD Narrative: patient is a 46-year-old woman who tells me she fell on some stairs 9 days ago at home. Although she did have some superficial injuries, none of these occurred to her right leg. The next day, she noticed some itching and scratch the back of her calf only to notice some fluid come forth after scratching the area. This area then subsequently became swollen and painful with erythema on the back of her leg. She went to the emergency room on September 07. She had a tiny pustule in the area which was incised and drained with a sterile needle. Additional pus was tried to be expressed although little returned. She was started on clindamycin. The redness became more extensive and she was having more pain. She came back to the emergency room on 09/10. Bedside ultrasound suggested there was an abscess deep to the wound. Incision and drainage was performed by the emergency room physician. The wound was packed. She was admitted and started on Ancef and vancomycin. Since then, she does feel better than when admitted. The area of the wound is less painful but still very tender. I was asked to see the patient regarding potential residual abscess or necrotic wound that may need incision and drainage or debridement. She does not recall an insect bite but does report she has a lot of spiders in her house. Review of Systems Review of Systems: All systems reviewed & are unremarkable except as noted in HPI and below ( HPI and those items noted below) Constitutional: Constitutional: Denies chills and Denies fever(s) Cardiovascular: Cardiovascular: Denies chest pain, Denies diaphoresis, Denies dyspnea and Denies paroxysmal nocturnal dyspnea Respiratory: Respiratory: Denies chest congestion, Denies cough and Denies dyspnea PMFSH Past Medical History Medical History (Updated 09/13/21 @ 15:03 by Cesar Argueta MD) Hypertension Social History Social History (Updated 09/07/21 @ 12:37 by Mark Lopez DO) Smoking status: Never smoker Alcohol intake: current Substance use: never Spiritual care concerns: No Meds Home Medications and Allergies Home Medications Medication Instructions Recorded Confirmed Type clindamycin HCl 150 mg capsule 450 mg PO Q8H 10 days #90 caps 09/07/21 09/10/21 Rx ibuprofen 600 mg tablet (IBU) 600 mg PO Q6H PRN pain #20 tabs 09/07/21 09/10/21 Rx 24Hour Allergy 1 tablet PO DAILY 09/10/21 09/10/21 History Adults Multivitamin 1 tablet PO DAILY 09/10/21 09/10/21 History duloxetine 30 mg capsule,delayed 2 cap PO HS 09/10/21 09/10/21 History release fluticasone propionate 50 1 spr
--- NOTE | 2021-09-13 15:38 | PCCCNOTE ---
On 09/13/21, the student, [Mary Shah], provided care and completed [facility] documentation on this patient. I have reviewed the student's documentation and agree with the findings.
[2021-09-13] MEDS: SILVERGEL (ELTA) 45 ML 1 APPLIC TOPICAL (18:14)
[2021-09-13] MEDS: DULoxetine HCL 60 MG CAPSULE.DR PO (20:42)
[2021-09-13 22:00] VITALS: BP 129/67; PULSE 86; RESP 16; TEMP 36.7; O2SAT 93
[2021-09-14] MEDS: HYDROcodone/acetaminophen (*CRX) 7.5-325 MG TABLET 1 TAB PO ×4 (03:23→22:12)
[2021-09-14 06:00] VITALS: BP 135/71; PULSE 79; TEMP 36.2; O2SAT 96
[2021-09-14 06:01] LABS: Hematocrit 36.2 % (37.0-47.0); Mean Corpuscular HGB Conc 30.4 g/dl (32-36); Mean Corpuscular Hemoglobin 29.6 pg (26-34); Mean Corpuscular Volume 97.3 fl (80-100); Mean Platelet Volume 9.3 fl (7.4-10.4); Platelet Count Result 370 k/mm3 (150-375); Red Blood Count 3.72 M/mm3 (4.2-5.4); Red Cell Distribution Width 14.2 % (11.5-14.5)
[2021-09-14] MEDS: CYCLOBENZAPRINE HCL 10 MG TABLET PO ×2 (06:09→21:19)
[2021-09-14 06:15] LABS: Anion Gap 6 mmol/L (8-16); Blood Urea Nitrogen 11 mg/dL (7-17); Calcium 8.9 mg/dL (8.4-10.2); Carbon Dioxide 29 mmol/L (22-30); Chloride 103 mmol/L (98-107); Estimated CRCL calculation 106 ml/min; Estimated Glomerular Filt Rate > 60; Glucose 108 mg/dL (65-110); Potassium 4.4 mmol/L (3.4-5.0); Sodium 138 mmol/L (137-145)
[2021-09-14] MEDS: lisinopriL 20 MG TABLET PO (08:53)
[2021-09-14] MEDS: SILVERGEL (ELTA) 45 ML 1 APPLIC TOPICAL (08:53)
[2021-09-14] MEDS: LORATADINE 10 MG TABLET PO (08:54)
[2021-09-14] MEDS: FLUTICASONE PROPIONATE 0.05% NA SPR 16 GM BTL (*BKC) 1 SPRAY NASAL (08:57)
[2021-09-14] MEDS: HEPARIN SODIUM 5,000 UNITS/ML VIAL 5000 UNITS SUB-Q ×2 (08:58→20:38)
[2021-09-14] MEDS: MULTIVITAMINS THERAPEUTIC TAB (*BKC) 1 TABLET PO (11:17)
--- NOTE | 2021-09-14 11:26 | PM.PNGS ---
Progress Note: A&P Assessment and Plan (1) Insect bite (nonvenomous), right lower leg, sequela: Code(s): S80.861S - Insect bite (nonvenomous), right lower leg, sequela; W57.XXXS - Bitten or stung by nonvenomous insect and other nonvenomous arthropods, sequela Status: Acute Assessment and Plan: Tenderness improving, continue silver gel to wound with gauze bandage and IV antibiotics. Will try to hold off on debridement as usually this is not necessary with insect bites. If fails to improve, could proceed with debridement. (2) Cellulitis: Qualifiers: Laterality: right Site of cellulitis: extremity Site of cellulitis of extremity: lower extremity Qualified Code(s): L03.115 - Cellulitis of right lower limb Code(s): L03.90 - Cellulitis, unspecified Status: Acute Assessment and Plan: More erythema noted but is very light and tenderness is improved. Continue antibiotics. Would help to keep leg elevated. Subjective Subjective Date/Time Seen: 09/14/21 11:26 Patient reports: pain is less and afebrile Review of Systems Review of Systems: All systems reviewed & are unremarkable except as noted in HPI and below (HPI) Exam Const: General: cooperative, comfortable, alert and awake Nutritional Appearance: obese Orientation/consciousness: No confusion Extrem: Right lower extremity: lower leg Details: erythema (Light erythema over entire lower leg), tenderness (Area around the wound much less tender, no crepitus, no fluctuance) Location: of the posterior calf and localized swelling; no pitting edema Objective Data Vital Signs Vital Signs: Vital Signs - 24 hr 09/13/21 13:54 09/13/21 20:00 09/13/21 22:00 Temperature 36.1 C L 36.7 C Pulse Rate 84 86 Respiratory Rate 18 16 Blood Pressure 142/78 H 129/67 Pulse Oximetry 96 93 Oxygen Delivery Room Air 09/14/21 06:00 Temperature 36.2 C L Pulse Rate 79 Respiratory Rate Blood Pressure 135/71 Pulse Oximetry 96 Oxygen Delivery Intake/Output Intake/Output: Intake & Output 09/11/21 09/12/21 09/13/21 09/14/21 23:59 23:59 23:59 23:59 Intake Total 2730 3000 2420 990 Output Total 500 5685 123 7570 Balance 2230 1600 1520 -310 Meds/Results Medications: Active Medications Generic Name Dose Route Start Last Admin Trade Name Freq PRN Reason Stop Dose Admin Hydrocodone Bitart/Acetaminophen 1 tab 09/10/21 15:24 09/12/21 21:51 Hydrocodone/Acetaminophen (*Crx) 5-325 Mg Tablet PO 1 tab Q4H PRN Administration Pain Rated 4-6 Hydrocodone Bitart/Acetaminophen 1 tab 09/11/21 13:52 09/14/21 08:55 Hydrocodone/Acetaminophen (*Crx) 7.5-325 Mg Tablet PO 1 tab Q6H PRN Administration Pain Rated 7-10 Cyclobenzaprine HCl 10 mg 09/10/21 09:15 09/14/21 06:09 Cyclobenzaprine Hcl 10 Mg Tablet PO 10 mg Q8H PRN Administration Muscle Spasm Duloxetine HCl 60 mg 09/10/21 21:00 09/13/21 20:42 Duloxetine Hcl 60 Mg Capsule.Dr PO 60 mg HS MASON Administration Fluticasone Propionate 1 spray 09/10/21 09:25 09/14/21 08:57 Fluticasone Propionate 0.05% Na Spr 16 Gm Btl (*Bkc) NASAL 1 spray DAILY MASON Administration Heparin Sodium (Porcine) 5,000 units 09/10/21 21:00 09/14/21 08:58 Heparin Sodium 5,000 Units/Ml Vial SUB-Q 5,000 units Q12HR MASON Administration Vancomycin HCl 1,750 mg in 500 mls @ 250 mls/hr 09/10/21 02:00 09/14/21 02:33 Vancomycin 1,750 Mg/D5w 500 Ml IVPB 250 mls/hr Q12H MASON Administration Cefazolin Sodium 1 gm in 50 mls @ 100 mls/hr 09/10/21 14:00 09/14/21 06:07 Ancef 1 Gm/D5w 50 Ml Pm IVPB 100 mls/hr Q8H MASON Administration Lisinopril 20 mg 09/10/21 09:25 09/14/21 08:53 Lisinopril 20 Mg Tablet PO 20 mg DAILY MASON Administration Loratadine 10 mg 09/10/21 09:30 09/14/21 08:54 Loratadine 10 Mg Tablet PO 10 mg QAM MASON Administration Multivitamins Therapeutic 1 tablet 09/10/21 09:20 09/14/21 11:17 Multiv
--- NOTE | 2021-09-14 12:34 | PM.IMPN ---
Progress Note: A&P Assessment and Plan (1) Cellulitis: Qualifiers: Laterality: right Site of cellulitis: extremity Site of cellulitis of extremity: lower extremity Qualified Code(s): L03.115 - Cellulitis of right lower limb Code(s): L03.90 - Cellulitis, unspecified Status: Acute Assessment and Plan: Right lower extremity. Some improvement of related with her ankle is still pretty red and inflamed. Continue IV antibiotics. Will get ultrasound to rule out abscess. Surgery has seen the patient. Continue current plan monitor. (2) Hypertension: Code(s): I10 - Essential (primary) hypertension Status: Acute Assessment and Plan: Continue home medications. Subjective Date/time seen: 09/14/21 12:34 No new complaints, cellulitis is improving Exam Narrative: General: alert and oriented Psych: appropriate mood nad affect Eyes: PERRLA Neck: Trachea midline, no new lesions Skin: no changes Lungs: CTA Cardiac: Normal S1,S2, no MGR ABD: soft, nd, nt, nbs Ext: no new lesions, no cce Vasc: Pulses intact Objective Data Vital Signs Vital Signs: Vital Signs - 24 hr 09/13/21 13:54 09/13/21 20:00 09/13/21 22:00 Temperature 97.0 F L 98.0 F Pulse Rate 84 86 Respiratory Rate 18 16 Blood Pressure 142/78 H 129/67 Pulse Oximetry 96 93 Oxygen Delivery Room Air 09/14/21 06:00 Temperature 97.1 F L Pulse Rate 79 Respiratory Rate Blood Pressure 135/71 Pulse Oximetry 96 Oxygen Delivery Intake/Output Intake/Output: Intake & Output 09/11/21 09/12/21 09/13/21 09/14/21 23:59 23:59 23:59 23:59 Intake Total 2730 3000 2420 990 Output Total 500 1395 001 5263 Balance 2230 1600 1520 -310 Meds/Results Medications: Active Medications Generic Name Dose Route Start Last Admin Trade Name Freq PRN Reason Stop Dose Admin Hydrocodone Bitart/Acetaminophen 1 tab 09/10/21 15:24 09/12/21 21:51 Hydrocodone/Acetaminophen (*Crx) 5-325 Mg Tablet PO 1 tab Q4H PRN Administration Pain Rated 4-6 Hydrocodone Bitart/Acetaminophen 1 tab 09/11/21 13:52 09/14/21 08:55 Hydrocodone/Acetaminophen (*Crx) 7.5-325 Mg Tablet PO 1 tab Q6H PRN Administration Pain Rated 7-10 Cyclobenzaprine HCl 10 mg 09/10/21 09:15 09/14/21 06:09 Cyclobenzaprine Hcl 10 Mg Tablet PO 10 mg Q8H PRN Administration Muscle Spasm Duloxetine HCl 60 mg 09/10/21 21:00 09/13/21 20:42 Duloxetine Hcl 60 Mg Capsule.Dr PO 60 mg HS MASON Administration Fluticasone Propionate 1 spray 09/10/21 09:25 09/14/21 08:57 Fluticasone Propionate 0.05% Na Spr 16 Gm Btl (*Bkc) NASAL 1 spray DAILY MASON Administration Heparin Sodium (Porcine) 5,000 units 09/10/21 21:00 09/14/21 08:58 Heparin Sodium 5,000 Units/Ml Vial SUB-Q 5,000 units Q12HR MASON Administration Vancomycin HCl 1,750 mg in 500 mls @ 250 mls/hr 09/10/21 02:00 09/14/21 02:33 Vancomycin 1,750 Mg/D5w 500 Ml IVPB 250 mls/hr Q12H MASON Administration Cefazolin Sodium 1 gm in 50 mls @ 100 mls/hr 09/10/21 14:00 09/14/21 06:07 Ancef 1 Gm/D5w 50 Ml Pm IVPB 100 mls/hr Q8H MASON Administration Lisinopril 20 mg 09/10/21 09:25 09/14/21 08:53 Lisinopril 20 Mg Tablet PO 20 mg DAILY MASON Administration Loratadine 10 mg 09/10/21 09:30 09/14/21 08:54 Loratadine 10 Mg Tablet PO 10 mg QAM MASON Administration Multivitamins Therapeutic 1 tablet 09/10/21 09:20 09/14/21 11:17 Multivitamins Therapeutic Tab (*Bkc) PO 1 tablet DAILY MASON Administration Ondansetron HCl 4 mg 09/10/21 02:55 Ondansetron Inj 4 Mg/2 Ml Vial IV PUSH Q4H PRN Nausea Silver Nitrate 1 applic 09/13/21 16:28 09/14/21 08:53 Silvergel (Elta) 45 Ml TOPICAL 1 applic DAILY MASON Administration Labs Labs: Laboratory Results - last 24 hr 09/14/21 09/14/21 05:33 05:33 WBC 8.0 RBC 3.72 L Hgb 11.0 L Hct 36.2 L MCV 97.3 MCH 29.6 MCHC 30.4 L RDW 1
[2021-09-14 14:00] VITALS: BP 114/58; PULSE 82; RESP 18; TEMP 36.1; O2SAT 96
[2021-09-14] MEDS: DULoxetine HCL 60 MG CAPSULE.DR PO (20:38)
[2021-09-14 22:00] VITALS: BP 124/66; PULSE 83; RESP 16; TEMP 37; O2SAT 93
[2021-09-15] MEDS: HYDROcodone/acetaminophen (*CRX) 7.5-325 MG TABLET 1 TAB PO ×2 (03:44→09:32)
[2021-09-15 05:47] VITALS: BP 116/69; PULSE 87; RESP 16; TEMP 36.7; O2SAT 93
[2021-09-15 06:05] LABS: Hematocrit 35.1 % (37.0-47.0); Hemoglobin 10.7 g/dL (12.0-15.0); Mean Corpuscular HGB Conc 30.5 g/dl (32-36); Mean Corpuscular Hemoglobin 29.3 pg (26-34); Mean Corpuscular Volume 96.2 fl (80-100); Mean Platelet Volume 9.2 fl (7.4-10.4); Platelet Count Result 355 k/mm3 (150-375); Red Blood Count 3.65 M/mm3 (4.2-5.4); Red Cell Distribution Width 14.1 % (11.5-14.5); White Blood Count 7.9 K/mm3 (4.5-10.0)
[2021-09-15 06:16] LABS: Anion Gap 2 mmol/L (8-16); Blood Urea Nitrogen 13 mg/dL (7-17); Carbon Dioxide 31 mmol/L (22-30); Chloride 104 mmol/L (98-107); Estimated CRCL calculation 106 ml/min; Estimated Glomerular Filt Rate > 60; Glucose 119 mg/dL (65-110); Potassium 4.2 mmol/L (3.4-5.0); Sodium 137 mmol/L (137-145)
[2021-09-15] MEDS: lisinopriL 20 MG TABLET PO (08:53)
[2021-09-15] MEDS: MULTIVITAMINS THERAPEUTIC TAB (*BKC) 1 TABLET PO (08:53)
[2021-09-15] MEDS: LORATADINE 10 MG TABLET PO (08:53)
[2021-09-15] MEDS: SILVERGEL (ELTA) 45 ML 1 APPLIC TOPICAL (08:54)
[2021-09-15] MEDS: FLUTICASONE PROPIONATE 0.05% NA SPR 16 GM BTL (*BKC) 1 SPRAY NASAL (08:54)
--- NOTE | 2021-09-15 10:01 | PM.PNGS ---
Progress Note: A&P Assessment and Plan (1) Insect bite (nonvenomous), right lower leg, sequela: Code(s): S80.861S - Insect bite (nonvenomous), right lower leg, sequela; W57.XXXS - Bitten or stung by nonvenomous insect and other nonvenomous arthropods, sequela Status: Acute Assessment and Plan: wound growing MRSA sensitive to Bactrim and clindamycin. Discussed with Dr. Turner, hospitalist. Okay to discharge from my perspective on oral antibiotics. She will continue silver gel and dry gauze bandage to the wound on a daily basis. Okay to bathe or shower. I will see her in the office in about 1 week. (2) Cellulitis: Qualifiers: Laterality: right Site of cellulitis: extremity Site of cellulitis of extremity: lower extremity Qualified Code(s): L03.115 - Cellulitis of right lower limb Code(s): L03.90 - Cellulitis, unspecified Status: Acute Assessment and Plan: Improved. Subjective Subjective Date/Time Seen: 09/15/21 10:01 Patient reports: feels better and pain is less Exam Const: General: comfortable Extrem: Right lower extremity: lower leg ( Faint erythema, wound stable, nontender now.) Details: erythema, no edema and penetrating wound ( Unchanged); no tenderness and no crepitus Objective Data Vital Signs Vital Signs: Vital Signs - 24 hr 09/14/21 14:00 09/14/21 20:00 09/14/21 22:00 Temperature 36.1 C L 37.0 C Pulse Rate 82 83 Respiratory Rate 18 16 Blood Pressure 114/58 L 124/66 Pulse Oximetry 96 93 Oxygen Delivery Room Air 09/15/21 05:47 Temperature 36.7 C Pulse Rate 87 Respiratory Rate 16 Blood Pressure 116/69 Pulse Oximetry 93 Oxygen Delivery Intake/Output Intake/Output: Intake & Output 09/12/21 09/13/21 09/14/21 09/15/21 23:59 23:59 23:59 23:59 Intake Total 3000 2420 2880 800 Output Total 7725 314 0557 1700 Balance 1600 1520 830 -900 Meds/Results Medications: Active Medications Generic Name Dose Route Start Last Admin Trade Name Freq PRN Reason Stop Dose Admin Hydrocodone Bitart/Acetaminophen 1 tab 09/10/21 15:24 09/12/21 21:51 Hydrocodone/Acetaminophen (*Crx) 5-325 Mg Tablet PO 1 tab Q4H PRN Administration Pain Rated 4-6 Hydrocodone Bitart/Acetaminophen 1 tab 09/11/21 13:52 09/15/21 09:32 Hydrocodone/Acetaminophen (*Crx) 7.5-325 Mg Tablet PO 1 tab Q6H PRN Administration Pain Rated 7-10 Cyclobenzaprine HCl 10 mg 09/10/21 09:15 09/14/21 21:19 Cyclobenzaprine Hcl 10 Mg Tablet PO 10 mg Q8H PRN Administration Muscle Spasm Duloxetine HCl 60 mg 09/10/21 21:00 09/14/21 20:38 Duloxetine Hcl 60 Mg Capsule.Dr PO 60 mg HS MASON Administration Fluticasone Propionate 1 spray 09/10/21 09:25 09/15/21 08:54 Fluticasone Propionate 0.05% Na Spr 16 Gm Btl (*Bkc) NASAL 1 spray DAILY MASON Administration Heparin Sodium (Porcine) 5,000 units 09/10/21 21:00 09/15/21 08:53 Heparin Sodium 5,000 Units/Ml Vial SUB-Q Not Given Q12HR MASON Vancomycin HCl 1,750 mg in 500 mls @ 250 mls/hr 09/10/21 02:00 09/15/21 03:12 Vancomycin 1,750 Mg/D5w 500 Ml IVPB 250 mls/hr Q12H MASON Administration Cefazolin Sodium 1 gm in 50 mls @ 100 mls/hr 09/10/21 14:00 09/15/21 07:14 Ancef 1 Gm/D5w 50 Ml Pm IVPB Infused Q8H MASON Infusion Lisinopril 20 mg 09/10/21 09:25 09/15/21 08:53 Lisinopril 20 Mg Tablet PO 20 mg DAILY MASON Administration Loratadine 10 mg 09/10/21 09:30 09/15/21 08:53 Loratadine 10 Mg Tablet PO 10 mg QAM MASON Administration Multivitamins Therapeutic 1 tablet 09/10/21 09:20 09/15/21 08:53 Multivitamins Therapeutic Tab (*Bkc) PO 1 tablet DAILY MASON Administration Ondansetron HCl 4 mg 09/10/21 02:55 Ondansetron Inj 4 Mg/2 Ml Vial IV PUSH Q4H PRN Nausea Silver Nitrate 1 applic 09/13/21 16:28 09/15/21 08:54 Silvergel (Elta) 45 Ml TOPICAL 1 applic DAILY MASON Administration Radiology Resul
--- NOTE | 2021-09-15 11:03 | PM.DS ---
DS: Admitting Diagnosis Discharge Date September 15, 2021 Admitting Diagnosis Cellulitis DS: Discharge Diagnosis Discharge Diagnosis (1) Cellulitis: Qualifiers: Laterality: right Site of cellulitis: extremity Site of cellulitis of extremity: lower extremity Qualified Code(s): L03.115 - Cellulitis of right lower limb Code(s): L03.90 - Cellulitis, unspecified Status: Acute Assessment and Plan: Improved. Patient was admitted for right calf cellulitis. Ulceration noted on the posterior aspect of the calf. Wound cultures obtained grew a RSA which was sensitive to Bactrim. Patient started on IV vancomycin initially had some improvement can be discharged on oral Bactrim. (2) Hypertension: Code(s): I10 - Essential (primary) hypertension Status: Acute Assessment and Plan: Continue home medications. DS: Summary Hospital Course Hospital Course: See discharge planning diagnoses Time Spent with Patient Time attestation: Total time spent providing and/or coordinating discharge services: Exam Narrative: General: alert and oriented Psych: appropriate mood nad affect Eyes: PERRLA Neck: Trachea midline, no new lesions Skin: no changes Lungs: CTA Cardiac: Normal S1,S2, no MGR ABD: soft, nd, nt, nbs Ext: no new lesions, no cce Vasc: Pulses intact DS: Data Data Completed and Pending Labs on day of discharge: Labs from last 24 hours 09/15/21 09/15/21 05:38 05:38 WBC 7.9 RBC 3.65 L Hgb 10.7 L Hct 35.1 L MCV 96.2 MCH 29.3 MCHC 30.5 L RDW 14.1 Plt Count 355 MPV 9.2 Sodium 137 Potassium 4.2 Chloride 104 Carbon Dioxide 31 H Anion Gap 2 L BUN 13 Creatinine 0.70 Estim Creat Clear Calc 106 Estimated GFR > 60 Glucose 119 H Calcium 9.0 Preliminary micro results at discharge 09/10/21 01:30 Blood Culture - Preliminary Blood 09/10/21 01:30 Blood Culture - Preliminary Blood Discharge Plan Discharge Attending physician on discharge: Silverio Turner Consulting providers: Cesar Argueta Discharging Clinician: Silverio Turner Patient Disposition: Home, Self-Care Activity: no preference Diet: as tolerated Wound Care Instructions: keep dressing dry, remove dressing to shower and change dressing daily Discharge Instructions: Wound care right calf- apply silver gel and dry gauze dressing to wound daily. May bathe or shower. Remove dressing to calf wound prior and reapply after. See Dr. Argueta a week from Thursday. Call his office to make appointment. Patient Instructions: Antibiotic Form, MRSA (Methicillin-Resistant Staphylococcus Aureus) (DC), Cellulitis (GEN) Stand Alone Forms: General Discharge Information Follow-up/Referrals: Cesar Argueta MD [Physician] - 09/23/21 ( Call Dr. Valladares office to make appointment.) Discharge Medications: New Silver-Sept 200 mcg/gram Gel 1 applic topical DAILY Qty: 45 0RF Rx Instructions: Apply to right calf wound and cover with dry gauze bandage daily. sulfamethoxazole-trimethoprim [Bactrim DS] 800-160 mg tablet 1 tablet PO Q12H 7 Days Qty: 14 0RF Continued ibuprofen [IBU] 600 mg tablet 600 mg PO Q6H PRN (Reason: pain) Qty: 20 0RF 24Hour Allergy 1 tablet PO DAILY Adults Multivitamin 1 tablet PO DAILY lisinopril 20 mg tablet 20 mg PO DAILY fluticasone propionate [Flonase] 50 mcg/actuation [place],Suspension 1 spray INTRANASAL DAILY duloxetine 30 mg capsule,delayed release(DR/EC) 2 cap PO HS Discontinued clindamycin HCl 150 mg capsule 450 mg PO Q8H 10 Days Qty: 90 0RF Date of admission: 09/12/21 15:20 Primary Care Provider: Deysi,Iris Admitting Provider: Lucinda Owusu Attending physician on admission: Lucinda Owusu Condition: Improved Quality VTE Prophylaxis VTE prophylaxis: pharmacologic ordered
== END 2021-09-15 12:35 | disposition home or self-care (01) | DRG 385 ==
LOC: ANHED 02:55 → ANH3MEDSUR 04:02
PROVIDERS: Family Medicine; Admitting Provider Internal Medicine; Emergency Provider Emergency Medicine; PCP Nurse Practitioner Family; Visit Provider Chiropractor
DX: S80.861A Insect bite (nonvenomous), right lower leg, initial encounter (principal); L03.115 Cellulitis of right lower limb; B95.62 Methicillin resistant Staphylococcus aureus infection as the cause of diseases classified elsewhere; W57.XXXA Bitten or stung by nonvenomous insect and other nonvenomous arthropods, initial encounter; I10 Essential (primary) hypertension; Z20.822 Contact with and (suspected) exposure to COVID-19; Z79.899 Other long term (current) drug therapy; Z91.81 History of falling
CPT/HCPCS: 36415; 76882; 80048; 80053; 80202; 83605; 85025; 85027; 87040; 87070; 87147; 87181; 87186; 87205; 96365; 96366; 96367; 96372; 96375; 96376; 99285; A9270; C9803; G0378; G0379; J0131; J0690; J1644; J3370; U0003; U0005

== ENCOUNTER 2021-09-27 08:56 | Outpatient (CLI) | payer OTHER, SELFPAY ==
[2021-09-27 09:32] LABS: Basophils Absolute Auto 0.1 K/mm3 (0.0-0.1); Basophils Percent Auto 1.1 % (0.2-1.2); Eosinophils Absolute Auto 0.2 K/mm3 (0-0.3); Eosinophils Percent Auto 4.6 % (0-4.4); Hematocrit 36.8 % (37.0-47.0); Hemoglobin 11.5 g/dL (12.0-15.0); Immature Granulocyte Absolute 0.02 K/mm3 (0.00-0.031); Immature Granulocyte Percent A 0.4 % (0-0.5); Lymphocytes Absolute Auto 1.89 K/mm3 (0.9-3.2); Lymphocytes Percent Auto 39.7 % (18.3-44.2); Mean Corpuscular HGB Conc 31.3 g/dl (32-36); Mean Corpuscular Hemoglobin 29.4 pg (26-34); Mean Corpuscular Volume 94.1 fl (80-100); Mean Platelet Volume 9.2 fl (7.4-10.4); Monocytes Absolute Auto 0.5 K/mm3 (0.1-0.6); Monocytes Percent Auto 9.9 % (2.6-8.5); Neutrophils Absolute Auto 2.1 K/mm3 (1.3-6.7); Neutrophils Percent Auto 44.3 % (45.5-73.1); Platelet Count Result 397 k/mm3 (150-375); Red Blood Count 3.91 M/mm3 (4.2-5.4); Red Cell Distribution Width 14.6 % (11.5-14.5); White Blood Count 4.8 K/mm3 (4.5-10.0)
[2021-09-27 09:46] LABS: Prothrombin Time 12.9 Seconds (11.1-14.7)
[2021-09-27 09:48] LABS: Partial Thromboplastin Time 29.8 SECONDS (22.3-36.8)
[2021-09-27 10:36] LABS: Vitamin D 25 Hydroxy 37.5 ng/mL
[2021-09-27 13:13] LABS: LDL Cholesterol Direct 63 mg/dL
[2021-09-27 14:07] LABS: Folic Acid 12.5 ng/mL (2.76->20)
[2021-09-27 14:09] LABS: Alanine Aminotransferase 34 U/L (6-35); Albumin Level 4.4 g/dL (3.5-5.1); Alkaline Phosphatase 85 U/L (38-126); Anion Gap 10 mmol/L (8-16); Aspartate Amino Transferase 29 U/L (14-36); Bilirubin,Total 0.2 mg/dL (0.2-1.3); Blood Urea Nitrogen 12 mg/dL (7-17); Calcium 8.9 mg/dL (8.4-10.2); Carbon Dioxide 26 mmol/L (22-30); Chloride 104 mmol/L (98-107); Cholesterol 227 mg/dL (0-200); Estimated Glomerular Filt Rate > 60; Glucose 100 mg/dL (65-110); HDL Direct 35 mg/dL; Magnesium 1.8 mg/dL (1.6-2.3); Potassium 4.5 mmol/L (3.4-5.0); Sodium 140 mmol/L (137-145)
[2021-09-27 14:20] LABS: Triglycerides 581 mg/dL (<150)
[2021-09-27 14:30] LABS: Hemoglobin A1C 5.6 % (<5.7)
[2021-09-27 14:35] LABS: Parathyroid Intact 77.3 pg/mL (7.5-53.5)
[2021-09-27 18:55] LABS: Iron 38 ug/dL (37-170)
[2021-09-27 19:03] LABS: Percent Iron Saturation 8 % (20-50)
[2021-10-02 15:22] LABS: Vitamin B1 14 nmol/L (8-30)
== END 2021-09-27 08:57 | disposition home or self-care (01) ==
LOC: ANHLAB 09:02
PROVIDERS: PCP Nurse Practitioner Family
DX: E66.01 Morbid (severe) obesity due to excess calories (principal); Z01.818 Encounter for other preprocedural examination
CPT/HCPCS: 36415; 80053; 80061; 82306; 82607; 82728; 82746; 83036; 83540; 83550; 83735; 83970; 84425; 84443; 85025; 85610; 85730

== ENCOUNTER 2022-02-14 06:56 | Inpatient (IN) | payer OTHER, SELFPAY ==
[2022-02-14] VITALS (7 sets, daily range): BP systolic 127–159; BP diastolic 68–115; PULSE 91–123; RESP 16–35; TEMP 36.2–36.8; O2SAT 93–95
--- NOTE | ~2022-02-14 | CT_ITS ---
EXAMINATION: CTA chest PE abdomen pel DATE: 02/14/2022 09:31 INDICATION: Right lower rib pain, right upper quadrant abdominal pain with breathing. Elevated d-dime r. TECHNIQUE: Computed tomography angiography (CTA) of the chest was performed with 100 mL Omnipaque-350 intravenous contrast timed to evaluate the pulmonary arteries. Coronal maximum intensity projection 3D-reconstructions were created by the technologist. Automated exposure control and iterative reconst ruction technique were employed. Exam dose: 2449.49 mGy-cm total exam DLP. COMPARISON: 02/14/2022 AP and lateral chest FINDINGS: The pulmonary is a moderately opacified with contrast material, without apparent pulmonary embolism. No thoracic aortic aneurysm or dissection. Mild cardiomegaly. No pericardial or pleural effusion. There are scattered patchy infiltrates of the upper and lower lobes and middle lobe, minimal on the l eft, most prominent at the base of the middle lobe anterolaterally, the posterolateral right right дмитрий ng base, right lower lobe, and most prominently at the posteromedial right lower lobe. Mild likely reactive right hilar and mediastinal lymph node prominence. Normal morphology of the adrenal glands. There are numerous small stones in the dependent aspect of the gallbladder. No gallbladder wall thick ening or pericholecystic fluid or fat stranding or bile duct or pancreatic duct dilatation. Prominent degenerative disc disease in lower cervical spine. No suspicious osteolytic or osteoblastic lesions are noted. IMPRESSION: Patchy bilateral pulmonary infiltrates, right greater than left, with greatest involveme nt of the lower lobes, likely due to pneumonia No evidence of pulmonary embolism Mild cardiomegaly Cholelithiasis Hepatic steatosis Reviewed, dictated and finalized at [facility]. Reviewed, dictated and finalized at location B. HOUSE ASSISTANT IMPRESSION: Patchy bilateral pulmonary infiltrates, right greater than left, w ith greatest involvement of the lower lobes, likely due to pneumonia No evidence of pulmonary embolism Mild cardiomegaly Cholelithiasis Hepatic steatosis
--- NOTE | ~2022-02-14 | XR_ITS ---
EXAMINATION: XR chest 2V DATE: 02/14/2022 08:04 INDICATION: Chest pain. Dyspnea. TECHNIQUE: Frontal and lateral views of the chest were obtained. COMPARISON: None. FINDINGS: There is mild elevation of right hemidiaphragm. No pneumonia, pleural effusion, or pneumoth orax. The heart size is normal. IMPRESSION: 1. No acute cardiopulmonary disease. Reviewed, dictated and finalized at location A. MANAGER
--- NOTE | 2022-02-14 07:21 | ECG_ITS ---
Measurements Intervals [place] Rate: 119 P: -11 [place]: 125 QRS: -20 QRSD: 78 T: 61 QT: 264 QTc: 371 Interpretive Statements SINUS TACHYCARDIA INFERIOR MYOCARDIAL INFARCTION , PROBABLY OLD [40+ ms Q WAVE AND/OR ST/T ABNORMALITY IN II/aVF] NO PREVIOUS ECG AVAILABLE FOR COMPARISON Electronically Signed On 02-14-2022 10:23:13 [employer] by Parisa Jo M.D.
--- NOTE | 2022-02-14 07:25 | ED.CHESTPAIN ---
HPI - Chest Pain General Chief Complaint: Chest Pain Stated Complaint: SOB Time Seen by Provider: 02/14/22 07:20 Source: patient History of Present Illness HPI narrative: 47 years old white female, came by private car to the emergency room complaining of cold symptoms over the last 7 days, woke up at 5 AM this morning with severe pain at the right lower ribs like a broken rib. Worse with breathing and certain movement. She denies any fever, chills, nausea, vomiting. Also denies any trauma. History of hypertension, Related Data Home Medications Medication Instructions Recorded Confirmed 24Hour Allergy 1 tablet PO DAILY 09/10/21 09/30/21 Adults Multivitamin 1 tablet PO DAILY 09/10/21 09/30/21 duloxetine 30 mg capsule,delayed 2 cap PO HS 09/10/21 09/30/21 release fluticasone propionate 50 1 spray intranasal DAILY 09/10/21 09/30/21 mcg/actuation nasal spray,suspension lisinopril 20 mg tablet 20 mg PO DAILY 09/10/21 09/30/21 Allergies Allergy/AdvReac Type Severity Reaction Status Date / Time No Known Allergies Allergy Verified 02/14/22 07:04 Review of Systems Review of Systems: All systems reviewed & are unremarkable except as noted in HPI and below PMFSH Past Medical History Medical History Hypertension Social History Social History Smoking status: Former smoker Alcohol intake: current Substance use: never Spiritual care concerns: No Exam Narrative: General appearance: Well-developed, well-nourished Skin: Normal color Head: Normocephalic, nontraumatic Eyes: Clear conjunctiva ENT: Oropharynx normal, ears normal, nose normal Neck: Supple, nontender Chest and respiratory: Airway patent, hyperventilating, diffuse tenderness right upper quadrant and right lower ribs with palpation, no bruises, no swelling or rash Heart: Tachycardia Abdomen: Soft, nontender, no organomegaly, quiet bowel sounds Vascular: Normal peripheral pulses, normal capillary refill. 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 I believe patient need to be hospitalized for observation because of the severity of pain, restlessness, hyperventilation and hypoxia. Patient's saturation is 94 on room air. Vital Signs Vital signs: Vital Signs Temperature 36.2 C L 02/14/22 06:59 Pulse Rate 122 H 02/14/22 06:59 Respiratory Rate 22 H 02/14/22 06:59 Blood Pressure 153/81 H 02/14/22 06:59 Pulse Oximetry 94 02/14/22 06:59 Oxygen Delivery Room Air 02/14/22 06:59 Temperature 36.2 C L 02/14/22 06:59 Pulse Rate 116 H 02/14/22 08:04 Respiratory Rate 22 H 02/14/22 08:04 Blood Pressure 127/115 H 02/14/22 07:46 Pulse Oximetry 95 02/14/22 08:04 Oxygen Delivery Room Air 02/14/22 09:18 MDM - Chest Pain Lab Data 02/14/22 07:54 02/14/22 07:54 Labs: Lab Results 02/14/22 02/14/22 02/14/22 Range/Units 07:54 07:54 07:54 WBC 11.0 H (4.5-10.0) K/mm3 RBC 4.15 L (4.2-5.4) M/mm3 Hgb 13.0 (12.0-15.0) g/dL Hct 39.6 (37.0-47.0) % MCV 95.4 (80-100) fl MCH 31.3 (26-34) pg MCHC 32.8 (32-36) g/dl RDW 13.7 (11.5-14.5) % Plt Count 315 (150-375) k/mm3 MPV 9.1 (7.4-10.4) fl Immature Gran % (Auto) 0.5 (
[2022-02-14 08:00] LABS: Basophils Percent Auto 0.4 % (0.2-1.2); Eosinophils Absolute Auto 0.1 K/mm3 (0-0.3); Eosinophils Percent Auto 0.5 % (0-4.4); Hematocrit 39.6 % (37.0-47.0); Immature Granulocyte Absolute 0.05 K/mm3 (0.00-0.031); Immature Granulocyte Percent A 0.5 % (0-0.5); Lymphocytes Absolute Auto 1.56 K/mm3 (0.9-3.2); Lymphocytes Percent Auto 14.2 % (18.3-44.2); Mean Corpuscular HGB Conc 32.8 g/dl (32-36); Mean Corpuscular Hemoglobin 31.3 pg (26-34); Mean Corpuscular Volume 95.4 fl (80-100); Mean Platelet Volume 9.1 fl (7.4-10.4); Monocytes Absolute Auto 0.8 K/mm3 (0.1-0.6); Monocytes Percent Auto 7.1 % (2.6-8.5); Neutrophils Absolute Auto 8.5 K/mm3 (1.3-6.7); Neutrophils Percent Auto 77.3 % (45.5-73.1); Platelet Count Result 315 k/mm3 (150-375); Red Blood Count 4.15 M/mm3 (4.2-5.4); Red Cell Distribution Width 13.7 % (11.5-14.5)
[2022-02-14 08:15] LABS: Alanine Aminotransferase 36 U/L (6-35); Albumin Level 4.4 g/dL (3.5-5.1); Alkaline Phosphatase 108 U/L (38-126); Anion Gap 10 mmol/L (8-16); Aspartate Amino Transferase 25 U/L (14-36); Bilirubin,Total 0.5 mg/dL (0.2-1.3); Blood Urea Nitrogen 13 mg/dL (7-17); Calcium 10.7 mg/dL (8.4-10.2); Carbon Dioxide 25 mmol/L (22-30); Chloride 100 mmol/L (98-107); Estimated CRCL calculation 105 ml/min; Estimated Glomerular Filt Rate > 60; Glucose 147 mg/dL (65-110); Lipase 45 U/L (23-300); Potassium 4.5 mmol/L (3.4-5.0); Sodium 135 mmol/L (137-145)
[2022-02-14 08:18] LABS: Prothrombin Time 12.8 Seconds (11.1-14.7)
[2022-02-14 08:22] LABS: D Dimer 0.73 ug/mL (<0.48)
[2022-02-14] MEDS: ASPIRIN 81 MG CHEWABLE TABLET 324 MG PO (08:26)
[2022-02-14 08:28] LABS: Troponin I < 0.012 ng/mL (0.000-0.034)
[2022-02-14] MEDS: ONDANSETRON INJ 4 MG/2 ML VIAL IV PUSH (08:38)
[2022-02-14] MEDS: MORPHINE SULFATE (*CRX) 4 MG/ML INJ IV PUSH (08:38)
[2022-02-14 09:06] LABS: Influenza A QL RT-PCR Negative (Negative); Influenza B QL RT-PCR Negative (Negative); RSV RNA, RT-PCR Negative (Negative); SARS-CoV-2 RNA PCR Negative
[2022-02-14 11:02] LABS: Troponin I < 0.012 ng/mL (0.000-0.034)
[2022-02-14] MEDS: KETOROLAC 30 MG/ML VIAL (*BKC) IV PUSH ×2 (11:18→14:35)
--- NOTE | 2022-02-14 12:46 | PM.IMHP ---
H&P: HPI History of Present Illness Date/Time: 02/14/22 12:46 Chief Complaint: Cold symptoms Narrative: The patient has been complaining of having cold symptoms for at least the last 7 days. The patient woke up at 5 this morning and was having pain in her right ribs from coughing so much. The pain is worst with coughing. She denies any fever chills or any nausea vomiting. No previous trauma. Her white count is 11.0. D-dimer 0.73. Calcium 10.7. Glucose 147. Troponin negative x3. In fluids at a BUN artist be and will COVID was negative. Chest x-ray read as patchy bilateral pulmonary infiltrates right greater than left with greatest involvement in the lower lobes likely due to pneumonia no evidence of pulmonary embolism mild cardiomegaly cholelithiasis and hepatic steatosis. The patient is being admitted to observation status on the date of service of 02/14/2022. Review of Systems Review of Systems: See HPI All systems reviewed & are unremarkable except as noted in HPI and below Constitutional: Constitutional: Reports as per HPI and Reports no additional constitutional complaints Eyes: Eyes: Reports as per HPI and Reports no additional eye complaints ENT: Reports system reviewed and no additional complaints, except as documented and Reports Normal hearing present Cardiovascular: Cardiovascular: Reports no additional cardiovascular complaints Respiratory: Respiratory: Reports no additional respiratory complaints and Reports no additional respiratory complaints Gastrointestinal: Gastrointestinal: Reports as per HPI and Reports no additional gastrointestinal complaints Musculoskeletal: Musculoskeletal: Reports no additional musculoskeletal complaints Integumentary/Breasts: Skin/Breast: Reports system reviewed and no additional complaints, except as docu and Reports as per HPI Neurologic: Reports system reviewed and no additional complaints, except as documented, Reports as per HPI and Reports Normal hearing present Psychiatric: Psychiatric: Reports no additional psychiatric complaints and Reports as per HPI Endocrine: Endocrine: Reports no additional endocrine complaints Hematologic/Lymphatic: Hematologic/Lymphatic: Reports no additional hematologic/lymphatic complaints Allergic/Immunologic: Allergic/Immunologic: Reports no additional allergic/immunologic complaints [facility] Past Medical History Medical History Cellulitis Gastric ulcer Hypertension Insect bite (nonvenomous), right lower leg, sequela MRSA infection Obesity Thrush, oral Surgical History Surgical History H/O section History of incision and drainage Family History Family History Father Heart disease Social History Social History (Updated 02/14/22 @ 15:41 by Cami Myers NP) Social History: The patient has 4 children and she is . She lives with her significant other. She is a former smoker. She does not use any alcohol marijuana or illicit drugs. The patient is unemployed at this time. Her children are the durable power employee benefits attorney for healthcare. Code status: full code Smoking status: Former smoker Alcohol intake: never Substance use: never Substance use type: does not use Lack of Transportation: No Lack of Food: Never True Current Housing: I Have Housing Concerned About Future Housing: No Difficulty Paying Gas/Electric Bills: No Difficulty Paying for Meds: No Currently Unemployed: No Education: High School Diploma/GED Difficulty w/ Childcare or Family Care: No Spiritual care concerns: No Meds Home Medications and Allergies Home Medications Medication Instructions Recorded Confirmed Type Adults Multivitamin 1 tablet PO DAILY 09/10/21 02/14/22 History duloxetine 30 mg capsule,delayed 2 cap PO HS 09/10/21 12
--- NOTE | 2022-02-14 13:26 | ADMGEN ---
This patient, Jennifer Winter, was admitted to 2 Medical Room 249-01. Patient/family oriented to hospital policies and general routines including ID bracelet, bed and alarms, visiting hours, pain management, procedures, bathroom and other care routines, personal items, smoking policy, room service/diet, and visiting hours. Information on how to activate the Rapid Response Team has been discussed. Patient/Family are encouraged to report perceived risks to care and to ask questions if they do not understand what they are told or what they should do.
[2022-02-14] MEDS: ACETAMINOPHEN 325 MG TABLET 650 MG PO (13:54)
[2022-02-14 14:27] LABS: Troponin I 0.016 ng/mL (0.000-0.034)
[2022-02-14] MEDS: lisinopriL 20 MG TABLET PO (14:34)
[2022-02-14] MEDS: BENZOCAINE/MENTHOL (*BKC) 18 EA LOZENGE 1 LOZENGE PO (16:32)
[2022-02-14] MEDS: traMADol HCL (*CRX) 25 MG TABLET PO ×2 (16:32→20:46)
[2022-02-14] MEDS: guaiFENesin/DEXTROMETHORPHAN 10 ML UDC PO ×2 (16:35→23:01)
[2022-02-14] MEDS: PANTOPRAZOLE 40 MG TABLET PO (16:35)
[2022-02-14] MEDS: SUCRALFATE 1 GM TABLET PO ×2 (16:35→20:46)
[2022-02-14] MEDS: DULoxetine HCL 60 MG CAPSULE.DR PO (20:46)
[2022-02-14] MEDS: HYDROcodone/acetaminophen (*CRX) 5-325 MG TABLET 1 TAB PO (23:00)
[2022-02-15] VITALS (11 sets, daily range): BP systolic 131–141; BP diastolic 57–72; PULSE 64–92; RESP 16–26; TEMP 35.9–36.7; O2SAT 92–96
[2022-02-15] MEDS: ACETAMINOPHEN 325 MG TABLET 650 MG PO ×3 (00:54→22:51)
[2022-02-15] MEDS: ALBUTEROL SULFATE NEB 2.5 MG/3 ML INH INHALATION ×4 (01:33→20:40)
[2022-02-15] MEDS: IPRATROPIUM BR 0.02% INH SOLN 0.5 MG/2.5 ML VIAL INHALATION ×4 (01:33→20:40)
[2022-02-15 06:25] LABS: Basophils Percent Auto 0.4 % (0.2-1.2); Eosinophils Absolute Auto 0.1 K/mm3 (0-0.3); Eosinophils Percent Auto 1.4 % (0-4.4); Hematocrit 35.4 % (37.0-47.0); Hemoglobin 10.9 g/dL (12.0-15.0); Immature Granulocyte Absolute 0.02 K/mm3 (0.00-0.031); Immature Granulocyte Percent A 0.3 % (0-0.5); Lymphocytes Percent Auto 15.2 % (18.3-44.2); Mean Corpuscular HGB Conc 30.8 g/dl (32-36); Mean Corpuscular Hemoglobin 31.6 pg (26-34); Mean Corpuscular Volume 102.6 fl (80-100); Mean Platelet Volume 9.4 fl (7.4-10.4); Monocytes Absolute Auto 0.7 K/mm3 (0.1-0.6); Neutrophils Absolute Auto 5.4 K/mm3 (1.3-6.7); Neutrophils Percent Auto 73.7 % (45.5-73.1); Platelet Count Result 288 k/mm3 (150-375); Red Blood Count 3.45 M/mm3 (4.2-5.4); Red Cell Distribution Width 14.1 % (11.5-14.5); White Blood Count 7.3 K/mm3 (4.5-10.0)
[2022-02-15 06:28] LABS: Lactic Acid Reflex 0.9 mmol/L (0.7-2.0)
[2022-02-15 06:29] LABS: Alanine Aminotransferase 32 U/L (6-35); Albumin Level 3.8 g/dL (3.5-5.1); Alkaline Phosphatase 108 U/L (38-126); Anion Gap 5 mmol/L (8-16); Aspartate Amino Transferase 20 U/L (14-36); Bilirubin,Total 0.3 mg/dL (0.2-1.3); Blood Urea Nitrogen 18 mg/dL (7-17); Calcium 9.1 mg/dL (8.4-10.2); Carbon Dioxide 28 mmol/L (22-30); Chloride 104 mmol/L (98-107); Estimated CRCL calculation 93 ml/min; Estimated Glomerular Filt Rate > 60; Glucose 143 mg/dL (65-110); Magnesium 1.8 mg/dL (1.6-2.3); Phosphorus 4.3 mg/dL (2.5-4.5); Potassium 4.2 mmol/L (3.4-5.0); Sodium 137 mmol/L (137-145)
[2022-02-15] MEDS: traMADol HCL (*CRX) 25 MG TABLET PO (06:31)
[2022-02-15] MEDS: guaiFENesin/DEXTROMETHORPHAN 10 ML UDC PO ×2 (06:34→20:12)
[2022-02-15 07:03] LABS: Thyroid Stimulating Hormone Reflex 0.576 uIU/mL (0.465-4.68)
--- NOTE | 2022-02-15 08:49 | ECG_ITS ---
Measurements Intervals [place] Rate: 80 P: -4 PA: 144 QRS: -20 QRSD: 92 T: 65 QT: 358 QTc: 415 Interpretive Statements SINUS RHYTHM INFERIOR MYOCARDIAL INFARCTION, PROBABLY OLD ABNORMAL ECG COMPARED TO ECG 02/14/2022 07:31:52 HEART RATE HAS DECREASED Electronically Signed On 02-15-2022 14:10:38 SUPERVISOR PARTICLEBOARD by Josiah Iyer M.D.
[2022-02-15] MEDS: MULTIVITAMINS THERAPEUTIC TAB (*BKC) 1 TABLET PO (09:22)
[2022-02-15] MEDS: SUCRALFATE 1 GM TABLET PO ×4 (09:22→20:03)
[2022-02-15] MEDS: FLUTICASONE PROPIONATE 0.05% NA SPR 16 GM BTL (*BKC) 1 SPRAY NASAL (09:22)
[2022-02-15] MEDS: PANTOPRAZOLE 40 MG TABLET PO ×2 (09:23→17:55)
[2022-02-15] MEDS: lisinopriL 20 MG TABLET PO (09:23)
--- NOTE | 2022-02-15 09:23 | PC.NURSE ---
awaiting on antibiotics to be delivered by pharm
--- NOTE | 2022-02-15 09:26 | PM.IMPN ---
Progress Note: A&P Assessment and Plan (1) Community acquired pneumonia: Code(s): J18.9 - Pneumonia, unspecified organism Status: Acute Assessment and Plan: -continue with community-acquired pneumonia antibiotic stewardship with azithromycin and Rocephin. -tailor antibiotics to sputum and blood cultures. -her white count is only 11.0. -nebulizer treatments add vancomycin as blood culture positive for GPPCC (2) Gastric ulcer: Code(s): K25.9 - Gastric ulcer, unspecified as acute or chronic, without hemorrhage or perforation Status: Acute Assessment and Plan: -continue with pantoprazole -continue carafate (3) Obesity: Code(s): E66.9 - Obesity, unspecified Status: Acute Assessment and Plan: -the patient stated that she is preparing for a gastric sleeve. (4) Hypertension: Code(s): I10 - Essential (primary) hypertension Status: Acute Assessment and Plan: -continue with lisinopril Plan Bacteremai: GPCC /. likley contaminant. will repeat blodo ctulrue. however will start vancomycin iv. DVT proph: SCDs Chest tightness: will check EGD. troponin x 3 negative ysterday. Subjective Date/time seen: 02/15/22 09:26 Interval history: no overnight events. patient reports some chest tightness, overall better than yesterdya. blood culture 1/2 positive for gpcc. no fever, chlils. still coughing. Review of Systems Review of Systems: All systems reviewed & are unremarkable except as noted in HPI and below Exam Narrative: GENERAL: The patient is well developed, not in acute distress HEENT: Nonicteric sclerae, PERRLA, EOMI. Oropharynx clear. Moist mucous membranes. Conjunctivae appear well perfused. CHEST: Chest wall is nontender. HEART: Regular rate and rhythm without murmur, rubs, or gallops LUNGS: coarse breath sounds bilaterally. no respiratory distress ABDOMEN: Soft, positive bowel sounds, non-tender, no organomegaly. SKIN: No rash, no excessive bruising, petechiae, or purpura. NEUROLOGIC: Cranial nerves II-XII intact, alert and oriented x 3, no gross motor deficits EXTREMITIES: no edema, cyanosis or clubbing Objective Data Vital Signs Vital Signs: Vital Signs - 24 hr 02/14/22 14:00 02/14/22 21:57 02/15/22 01:37 Temperature 97.5 F L 98.2 F Pulse Rate 91 95 87 Respiratory Rate 20 16 18 Blood Pressure 130/68 131/69 Pulse Oximetry 95 93 96 Oxygen Delivery Room Air 02/15/22 01:37 02/15/22 01:50 02/15/22 06:00 Temperature 98.1 F Pulse Rate 87 84 85 Respiratory Rate 18 18 16 Blood Pressure 141/72 H Pulse Oximetry 92 Oxygen Delivery Intake/Output Intake/Output: Intake & Output 02/12/22 02/13/22 02/14/22 02/15/22 23:59 23:59 23:59 23:59 Intake Total 300 900 Balance 300 900 Meds/Results Medications: Active Medications Generic Name Dose Route Start Last Admin Trade Name Freq PRN Reason Stop Dose Admin Acetaminophen 650 mg 02/14/22 10:11 02/15/22 06:32 Acetaminophen 325 Mg Tablet PO 650 mg Q4H PRN Administration Mild Pain (1-3) or Fever Albuterol 2.5 mg 02/14/22 20:00 02/15/22 01:33 Albuterol Sulfate Neb 2.5 Mg/3 Ml Inh INHALATION 2.5 mg Q6HRT MASON Administration Benzocaine 1 lozenge 02/14/22 16:00 02/14/22 16:32 Benzocaine/Menthol (*Bkc) 18 Ea Lozenge PO 1 lozenge PRN PRN Administration Sore Throat Duloxetine HCl 60 mg 02/14/22 21:00 02/14/22 20:46 Duloxetine Hcl 60 Mg Capsule.Dr PO 60 mg HS MASON Administration Fluticasone Propionate 1 spray 02/15/22 09:00 02/15/22 09:22 Fluticasone Propionate 0.05% Na Spr 16 Gm Btl (*Bkc) NASAL 1 spray DAILY MASON Administration Guaifenesin/Dextromethorphan 10 ml 02/14/22 15:35 02/15/22 06:34 Guaifenesin/Dextromethorphan 10 Ml Udc PO 10 ml Q4H PRN Administration Cough Ceftriaxone Sodium/Dextrose 1 gm in 50 mls @ 100 mls/hr 02/15/22 09:00 Rocephin 1 Gm/D5w 50 Ml IVPB DAILY MASON
--- NOTE | 2022-02-15 10:16 | PC.NURSE ---
call to pharm for missing ivabx dose from 0900
--- NOTE | 2022-02-15 11:50 | PC.NURSE ---
call to pharm for missing 0900 antibiotic
[2022-02-15] MEDS: HYDROcodone/acetaminophen (*CRX) 5-325 MG TABLET 1 TAB PO ×2 (13:34→20:03)
[2022-02-15] MEDS: DULoxetine HCL 60 MG CAPSULE.DR PO (20:03)
[2022-02-16] VITALS (8 sets, daily range): BP systolic 125–151; BP diastolic 62–89; PULSE 75–87; RESP 16–18; TEMP 36.2–36.5; O2SAT 93–96
[2022-02-16] MEDS: ALBUTEROL SULFATE NEB 2.5 MG/3 ML INH INHALATION ×3 (01:33→14:23)
[2022-02-16] MEDS: IPRATROPIUM BR 0.02% INH SOLN 0.5 MG/2.5 ML VIAL INHALATION ×3 (01:33→14:23)
[2022-02-16] MEDS: HYDROcodone/acetaminophen (*CRX) 5-325 MG TABLET 1 TAB PO ×3 (05:54→18:54)
[2022-02-16 06:14] LABS: Basophils Percent Auto 0.5 % (0.2-1.2); Eosinophils Absolute Auto 0.2 K/mm3 (0-0.3); Eosinophils Percent Auto 2.8 % (0-4.4); Hematocrit 34.9 % (37.0-47.0); Hemoglobin 10.8 g/dL (12.0-15.0); Immature Granulocyte Absolute 0.04 K/mm3 (0.00-0.031); Immature Granulocyte Percent A 0.5 % (0-0.5); Lymphocytes Absolute Auto 1.15 K/mm3 (0.9-3.2); Lymphocytes Percent Auto 15.3 % (18.3-44.2); Mean Corpuscular HGB Conc 30.9 g/dl (32-36); Mean Corpuscular Hemoglobin 31.5 pg (26-34); Mean Corpuscular Volume 101.7 fl (80-100); Mean Platelet Volume 9.3 fl (7.4-10.4); Monocytes Absolute Auto 0.6 K/mm3 (0.1-0.6); Monocytes Percent Auto 7.5 % (2.6-8.5); Neutrophils Absolute Auto 5.5 K/mm3 (1.3-6.7); Neutrophils Percent Auto 73.4 % (45.5-73.1); Platelet Count Result 326 k/mm3 (150-375); Red Blood Count 3.43 M/mm3 (4.2-5.4); White Blood Count 7.5 K/mm3 (4.5-10.0)
[2022-02-16 06:53] LABS: Alanine Aminotransferase 50 U/L (6-35); Alkaline Phosphatase 110 U/L (38-126); Anion Gap 7 mmol/L (8-16); Aspartate Amino Transferase 54 U/L (14-36); Bilirubin,Total 0.5 mg/dL (0.2-1.3); Blood Urea Nitrogen 14 mg/dL (7-17); Calcium 8.6 mg/dL (8.4-10.2); Carbon Dioxide 27 mmol/L (22-30); Chloride 99 mmol/L (98-107); Estimated CRCL calculation 143 ml/min; Estimated Glomerular Filt Rate > 60; Glucose 121 mg/dL (65-110); Magnesium 1.9 mg/dL (1.6-2.3); Potassium 4.7 mmol/L (3.4-5.0); Sodium 133 mmol/L (137-145)
--- NOTE | 2022-02-16 08:47 | PM.IMPN ---
Progress Note: A&P Assessment and Plan (1) Community acquired pneumonia: Code(s): J18.9 - Pneumonia, unspecified organism Status: Acute Assessment and Plan: -continue with community-acquired pneumonia antibiotic stewardship with azithromycin and Rocephin. -tailor antibiotics to sputum and blood cultures. -her white count is only 11.0. -nebulizer treatments add vancomycin as blood culture positive for GPPCC which CT identified as Staph Rubén coccus hominis. Repeat blood culture has been no growth to date likely a contamination will stop vancomycin today (2) Gastric ulcer: Code(s): K25.9 - Gastric ulcer, unspecified as acute or chronic, without hemorrhage or perforation Status: Acute Assessment and Plan: -continue with pantoprazole -continue carafate (3) Obesity: Code(s): E66.9 - Obesity, unspecified Status: Acute Assessment and Plan: -the patient stated that she is preparing for a gastric sleeve. (4) Hypertension: Code(s): I10 - Essential (primary) hypertension Status: Acute Assessment and Plan: -continue with lisinopril Plan Bacteremai: GPCC 03/19. yohanaley contaminant. will repeat blodo ctulrue. however will start vancomycin iv. bacteremia identify the Staph hominis. Likely a contamination. Repeat blood cultures been negative to date. DVT proph: SCDs Chest tightness: EKG was okay troponin x3 was negative. Reproducible chest pain on the right side. Likely musculoskeletal from coughing Subjective Date/time seen: 02/16/22 08:47 Interval history: No overnight events. remains afebrile. Some shortness of breath persist. no fever, chills, sob,Reports right-sided chest pain whenever she breathes and moved Review of Systems Review of Systems: All systems reviewed & are unremarkable except as noted in HPI and below Exam Narrative: GENERAL: The patient is well developed, not in acute distress HEENT: Nonicteric sclerae, PERRLA, EOMI. Oropharynx clear. Moist mucous membranes. Conjunctivae appear well perfused. CHEST: Chest wall is nontender. HEART: Regular rate and rhythm without murmur, rubs, or gallops LUNGS: coarse breath sounds bilaterally. no respiratory distress ABDOMEN: Soft, positive bowel sounds, non-tender, no organomegaly. SKIN: No rash, no excessive bruising, petechiae, or purpura. NEUROLOGIC: Cranial nerves II-XII intact, alert and oriented x 3, no gross motor deficits EXTREMITIES: no edema, cyanosis or clubbing Objective Data Vital Signs Vital Signs: Vital Signs - 24 hr 02/15/22 10:25 02/15/22 10:25 02/15/22 10:33 Temperature Pulse Rate 88 88 85 Respiratory Rate 18 18 Blood Pressure Pulse Oximetry 95 Oxygen Delivery Room Air 02/15/22 13:55 02/15/22 14:22 02/15/22 14:35 Temperature 96.7 F L Pulse Rate 88 90 92 Respiratory Rate 18 22 H 26 H Blood Pressure 131/57 L Pulse Oximetry 94 Oxygen Delivery 02/15/22 20:40 02/15/22 21:07 02/15/22 21:55 Temperature 97.2 F L Pulse Rate 72 78 64 Respiratory Rate 22 H 22 H 18 Blood Pressure 140/59 L Pulse Oximetry 96 Oxygen Delivery 02/15/22 22:00 02/16/22 01:34 02/16/22 01:34 Temperature Pulse Rate 87 87 Respiratory Rate 18 18 Blood Pressure Pulse Oximetry 96 Oxygen Delivery Room Air Room Air 02/16/22 01:53 02/16/22 06:40 02/16/22 08:15 Temperature 97.1 F L Pulse Rate 84 87 Respiratory Rate 18 16 Blood Pressure 151/89 H Pulse Oximetry 93 94 Oxygen Delivery Room Air 02/16/22 08:15 02/16/22 08:23 Temperature Pulse Rate 84 80 Respiratory Rate 18 18 Blood Pressure Pulse Oximetry Oxygen Delivery Intake/Output Intake/Output: Intake & Output 02/13/22 02/14/22 02/15/22 02/16/22 23:59 23:59 23:59 23:59 Intake Total 300 2430 900 Balance 300 2430 900 Meds/Results Medications: Active Medications Generic Name Dose Route Start Last Admin Trade Name Freq PRN Reason Stop Dose A
[2022-02-16] MEDS: MULTIVITAMINS THERAPEUTIC TAB (*BKC) 1 TABLET PO (09:39)
[2022-02-16] MEDS: SUCRALFATE 1 GM TABLET PO ×4 (09:39→21:05)
[2022-02-16] MEDS: lisinopriL 20 MG TABLET PO (09:39)
[2022-02-16] MEDS: PANTOPRAZOLE 40 MG TABLET PO ×2 (09:39→17:25)
[2022-02-16] MEDS: DULoxetine HCL 60 MG CAPSULE.DR PO (21:05)
[2022-02-16] MEDS: BENZOCAINE/MENTHOL (*BKC) 18 EA LOZENGE 1 LOZENGE PO (21:06)
--- NOTE | 2022-02-16 23:07 | PCRCNOTE ---
Window of time for administration has passed. See next scheduled administration.
[2022-02-17] MEDS: HYDROcodone/acetaminophen (*CRX) 5-325 MG TABLET 1 TAB PO ×2 (01:11→08:08)
[2022-02-17] MEDS: guaiFENesin/DEXTROMETHORPHAN 10 ML UDC PO (01:40)
[2022-02-17] MEDS: ALBUTEROL SULFATE NEB 2.5 MG/3 ML INH INHALATION ×2 (02:54→08:39)
[2022-02-17 02:55] VITALS: PULSE 76; RESP 16
[2022-02-17] MEDS: IPRATROPIUM BR 0.02% INH SOLN 0.5 MG/2.5 ML VIAL INHALATION ×2 (02:55→08:38)
[2022-02-17 03:09] VITALS: PULSE 75; RESP 16
[2022-02-17 06:00] VITALS: BP 134/68; PULSE 78; RESP 16; TEMP 36.6; O2SAT 94
[2022-02-17 06:45] LABS: Basophils Percent Auto 0.5 % (0.2-1.2); Eosinophils Absolute Auto 0.2 K/mm3 (0-0.3); Eosinophils Percent Auto 2.8 % (0-4.4); Hematocrit 36.3 % (37.0-47.0); Hemoglobin 11.2 g/dL (12.0-15.0); Immature Granulocyte Absolute 0.05 K/mm3 (0.00-0.031); Immature Granulocyte Percent A 0.8 % (0-0.5); Lymphocytes Absolute Auto 1.42 K/mm3 (0.9-3.2); Lymphocytes Percent Auto 23.3 % (18.3-44.2); Mean Corpuscular HGB Conc 30.9 g/dl (32-36); Mean Corpuscular Hemoglobin 31.2 pg (26-34); Mean Corpuscular Volume 101.1 fl (80-100); Mean Platelet Volume 9.2 fl (7.4-10.4); Monocytes Absolute Auto 0.4 K/mm3 (0.1-0.6); Monocytes Percent Auto 6.9 % (2.6-8.5); Neutrophils Percent Auto 65.7 % (45.5-73.1); Platelet Count Result 348 k/mm3 (150-375); Red Blood Count 3.59 M/mm3 (4.2-5.4); Red Cell Distribution Width 13.8 % (11.5-14.5); White Blood Count 6.1 K/mm3 (4.5-10.0)
[2022-02-17 08:00] VITALS: BP 128/62; PULSE 76; RESP 16; TEMP 36.4; O2SAT 95
[2022-02-17] MEDS: MULTIVITAMINS THERAPEUTIC TAB (*BKC) 1 TABLET PO (08:09)
[2022-02-17] MEDS: SUCRALFATE 1 GM TABLET PO (08:09)
[2022-02-17] MEDS: PANTOPRAZOLE 40 MG TABLET PO (08:09)
[2022-02-17] MEDS: lisinopriL 20 MG TABLET PO (08:09)
--- NOTE | 2022-02-17 08:10 | PC.NURSE ---
no IV access, call to vascular automotive accessory installer to place IV with ultrasound
[2022-02-17 08:40] VITALS: PULSE 78; RESP 16
[2022-02-17 08:50] LABS: Alanine Aminotransferase 124 U/L (6-35); Albumin Level 3.8 g/dL (3.5-5.1); Alkaline Phosphatase 149 U/L (38-126); Anion Gap 5 mmol/L (8-16); Aspartate Amino Transferase 98 U/L (14-36); Bilirubin,Total 0.3 mg/dL (0.2-1.3); Blood Urea Nitrogen 9 mg/dL (7-17); Carbon Dioxide 29 mmol/L (22-30); Chloride 100 mmol/L (98-107); Estimated CRCL calculation 143 ml/min; Estimated Glomerular Filt Rate > 60; Glucose 114 mg/dL (65-110); Potassium 4.3 mmol/L (3.4-5.0); Sodium 134 mmol/L (137-145)
[2022-02-17 08:52] VITALS: PULSE 81; RESP 18
--- NOTE | 2022-02-17 10:08 | PM.DS ---
DS: Admitting Diagnosis Discharge Date 02/17/2022 Admitting Diagnosis shortness of breath DS: Discharge Diagnosis Discharge Diagnosis (1) Community acquired pneumonia: Code(s): J18.9 - Pneumonia, unspecified organism Status: Acute (2) Gastric ulcer: Code(s): K25.9 - Gastric ulcer, unspecified as acute or chronic, without hemorrhage or perforation Status: Acute (3) Obesity: Code(s): E66.9 - Obesity, unspecified Status: Acute (4) Hypertension: Code(s): I10 - Essential (primary) hypertension Status: Acute DS: Summary Hospital Course Hospital Course: # Community acquired pneumonia: ?-continue with community-acquired pneumonia antibiotic stewardship with azithromycin and Rocephin. -tailor antibiotics to sputum and blood cultures. -her white count is only 11.0. -nebulizer treatments add vancomycin as blood culture positive for GPPCC which CT identified as Staph Rubén coccus hominis.? Repeat blood culture has been no growth to date likely a contamination and hence stopped vancomycin. will switch to cefdinir and azithromoycin for discahrge. # hx of Gastric ulcer: -continue with pantoprazole -continue carafate # morbid Obesity: -the patient stated that she is preparing for a gastric sleeve. # Hypertension: -continue with lisinopril # Bacteremia: GPCC 04/19. likley contaminant. repeat blood culture rmained negative prior to start of iv vancomycin. bacteremia identify the Staph hominis.? Likely a contamination.? vancomycin stopped. # DVT proph: SCDs # Chest tightness/pain:? EKG was okay troponin x3 was negative.? Reproducible chest pain on the right side.? Likely musculoskeletal from coughing which is imporving. Time Spent with Patient Time attestation: Total time spent providing and/or coordinating discharge services:45 mins Exam Narrative: GENERAL: The patient is well developed, not in acute distress HEENT: Nonicteric sclerae, PERRLA, EOMI. Oropharynx clear. Moist mucous membranes. Conjunctivae appear well perfused. CHEST: Chest wall is nontender. HEART: Regular rate and rhythm without murmur, rubs, or gallops LUNGS: coarse breath sounds bilaterally. no respiratory distress ABDOMEN: Soft, positive bowel sounds, non-tender, no organomegaly. SKIN: No rash, no excessive bruising, petechiae, or purpura. NEUROLOGIC: Cranial nerves II-XII intact, alert and oriented x 3, no gross motor deficits EXTREMITIES: no edema, cyanosis or clubbing DS: Data Data Completed and Pending Labs on day of discharge: Labs from last 24 hours 02/17/22 02/17/22 08:02 06:04 WBC 6.1 RBC 3.59 L Hgb 11.2 L Hct 36.3 L MCV 101.1 H MCH 31.2 MCHC 30.9 L RDW 13.8 Plt Count 348 MPV 9.2 Immature Gran % (Auto) 0.8 H Neut % (Auto) 65.7 Lymph % (Auto) 23.3 Payne % (Auto) 6.9 Eos % (Auto) 2.8 Baso % (Auto) 0.5 Lymph # (Auto) 1.42 Payne # (Auto) 0.4 Eos # (Auto) 0.2 Baso # (Auto) 0.0 Abs Immat Gran (auto) 0.05 H Absolute Neuts (auto) 4.0 Absolute Nucleated RBC 0.0 Nucleated RBC % 0.0 Sodium 134 L Potassium 4.3 Chloride 100 Carbon Dioxide 29 Anion Gap 5 L BUN 9 D Creatinine 0.50 L Estim Creat Clear Calc 143 Estimated GFR > 60 Glucose 114 H Calcium 9.0 Magnesium 2.0 Total Bilirubin 0.3 AST 98 H ALT 124 H Alkaline Phosphatase 149 H Total Protein 7.0 Albumin 3.8 Preliminary micro results at discharge 02/15/22 10:47 Blood Culture - Preliminary Blood 02/15/22 10:52 Blood Culture - Preliminary Blood 02/14/22 10:31 Blood Culture - Preliminary Blood Imaging Radiologist's impression: ITS Impressions Chest X-Ray 02/14/22 08:07 IMPRESSION: 1. No acute cardiopulmonary disease. Chest/Abdomen/Pelvis CTA 02/14/22 09:33 IMPRESSION: Patchy bilateral pulmonary infiltrates, right greater than left, with greatest involvement of the lower lobes, likely due to pneumonia No eviden
== END 2022-02-17 12:23 | disposition home or self-care (01) | DRG 139 ==
LOC: ANHED 10:10 → ANH2MED 13:12
PROVIDERS: Nurse Practitioner; Admitting Provider Chiropractor; Emergency Provider Emergency Medicine; PCP Nurse Practitioner Family; Visit Provider Internal Medicine
DX: J18.9 Pneumonia, unspecified organism (principal); E66.01 Morbid (severe) obesity due to excess calories; Z68.41 Body mass index [BMI] 40.0-44.9, adult; K25.9 Gastric ulcer, unspecified as acute or chronic, without hemorrhage or perforation; I10 Essential (primary) hypertension; R07.9 Chest pain, unspecified; Z20.822 Contact with and (suspected) exposure to COVID-19; Z82.49 Family history of ischemic heart disease and other diseases of the circulatory system; Z87.891 Personal history of nicotine dependence; Z79.899 Other long term (current) drug therapy
CPT/HCPCS: 36415; 71046; 71275; 74177; 80053; 83605; 83690; 83735; 84100; 84443; 84484; 85025; 85380; 85610; 85730; 87040; 87070; 87147; 87181; 87186; 87205; 87637; 93005; 94640; 96365; 96367; 96375; 96376; 99285; A9270; G0378; J0456; J0696; J1885; J2270; J2405; J3370; Q9967

== ENCOUNTER 2022-04-14 10:15 | Outpatient (CLI) | payer OTHER, SELFPAY ==
[2022-04-14 11:14] LABS: Basophils Percent Auto 0.3 % (0.2-1.2); Eosinophils Absolute Auto 0.1 K/mm3 (0-0.3); Eosinophils Percent Auto 1.2 % (0-4.4); Hematocrit 42.3 % (37.0-47.0); Hemoglobin 13.6 g/dL (12.0-15.0); Immature Granulocyte Absolute 0.04 K/mm3 (0.00-0.031); Immature Granulocyte Percent A 0.4 % (0-0.5); Lymphocytes Percent Auto 21.3 % (18.3-44.2); Mean Corpuscular HGB Conc 32.2 g/dl (32-36); Mean Corpuscular Hemoglobin 31.7 pg (26-34); Mean Corpuscular Volume 98.6 fl (80-100); Mean Platelet Volume 9.5 fl (7.4-10.4); Monocytes Absolute Auto 0.7 K/mm3 (0.1-0.6); Monocytes Percent Auto 7.9 % (2.6-8.5); Neutrophils Absolute Auto 6.5 K/mm3 (1.3-6.7); Neutrophils Percent Auto 68.9 % (45.5-73.1); Platelet Count Result 330 k/mm3 (150-375); Red Blood Count 4.29 M/mm3 (4.2-5.4); Red Cell Distribution Width 16.2 % (11.5-14.5); White Blood Count 9.4 K/mm3 (4.5-10.0)
[2022-04-14 11:34] LABS: Transferrin 304 mg/dL (206-381)
[2022-04-14 11:37] LABS: Parathyroid Intact 70.8 pg/mL (7.5-53.5)
[2022-04-14 11:40] LABS: Iron 94 ug/dL (37-170)
== END 2022-04-14 10:16 | disposition home or self-care (01) ==
LOC: ANHLAB 10:20
PROVIDERS: PCP Nurse Practitioner Family
DX: R89.9 Unspecified abnormal finding in specimens from other organs, systems and tissues (principal); D50.8 Other iron deficiency anemias
CPT/HCPCS: 36415; 82310; 83540; 83970; 84466; 85025

== ENCOUNTER 2022-06-11 17:55 | Emergency (ER) | payer OTHER, SELFPAY ==
[2022-06-11 18:06] VITALS: BP 167/80; PULSE 98; RESP 20; TEMP 36.7; O2SAT 97
--- NOTE | 2022-06-11 20:01 | ED.GENADULT ---
HPI - General Adult General Chief complaint: Unspecified Stated complaint: lymph node swelling and leg redness Time Seen by Provider: 06/11/22 19:42 History of Present Illness HPI narrative: this is a 47-year-old female presenting ED with a chief complaint of lower extremity redness and pain. She says over last month she has had progressively worse erythema and burning sensation over her legs. she does have a history of cellulitis. She denies fever, chills, nausea vomiting or diarrhea. She denies any breaks in the skin. She has not seen her primary care physician for this complaint. Patient also mentioned chronic swelling of what she believes are lymph nodes or possibly her parotid gland. It is not painful, inflamed or irritating her in any way outside of cosmetics. This is being worked up by her primary care physician and will not be addressed today. Related Data Home Medications Medication Instructions Recorded Confirmed Adults Multivitamin 1 tablet PO DAILY 09/10/21 02/14/22 duloxetine 30 mg capsule,delayed 2 cap PO HS 09/10/21 02/14/22 release fluticasone propionate 50 1 spray intranasal DAILY 09/10/21 02/14/22 mcg/actuation nasal spray,suspension lisinopril 20 mg tablet 20 mg PO DAILY 09/10/21 02/14/22 benzonatate 100 mg capsule 100 mg PO QID PRN Cough 02/14/22 02/14/22 cetirizine 10 mg capsule (Zyrtec) 10 mg PO DAILY 02/14/22 02/14/22 omeprazole 40 mg capsule,delayed 40 mg PO BID 02/14/22 02/14/22 release sucralfate 1 gram tablet 1 g PO QID 02/14/22 02/14/22 Allergies Allergy/AdvReac Type Severity Reaction Status Date / Time No Known Allergies Allergy Verified 02/14/22 13:28 [facility] Past Medical History Medical History Cellulitis Gastric ulcer Hypertension Insect bite (nonvenomous), right lower leg, sequela MRSA infection Obesity Thrush, oral Surgical History Surgical History H/O section History of incision and drainage Family History Family History Father Heart disease Social History Social History (Updated 02/14/22 @ 15:41 by Cami Myers NP) Social History: The patient has 4 children and she is . She lives with her significant other. She is a former smoker. She does not use any alcohol marijuana or illicit drugs. The patient is unemployed at this time. Her children are the durable power energy attorney for healthcare. Code status: full code Smoking status: Former smoker Alcohol intake: never Substance use: never Substance use type: does not use Lack of Transportation: No Lack of Food: Never True Current Housing: I Have Housing Concerned About Future Housing: No Difficulty Paying Gas/Electric Bills: No Difficulty Paying for Meds: No Currently Unemployed: No Education: High School Diploma/GED Difficulty w/ Childcare or Family Care: No Spiritual care concerns: No Exam Narrative: APPEARANCE: No apparent distress. Head: Painless swelling of what appears to be the parotid gland bilaterally. Unable to express any pus in the mouth. EYES: EOMI, NOSE: Atraumatic NECK: Trachea midline RESPIRATORY: No increased rate of breathing CARDIOVASCULAR: RRR, ABDOMINAL: Non-distended MUSCULOSKELETAl: No obvious deformities NEURO: Alert. Moving 4/4 extremities SKIN:: Patient has erythema around the ankle the right lower extremity. Warm to touch. No evidence of abscess PSYCHIATRIC: Normal affect Course Vital Signs Vital signs: Vital Signs Temperature 98.1 F 06/11/22 18:06 Pulse Rate 98 06/11/22 18:06 Respiratory Rate 20 06/11/22 18:06 Blood Pressure 167/80 H 06/11/22 18:06 Pulse Oximetry 97 06/11/22 18:06 Oxygen Delivery Room Air 06/11/22 18:06 Temperature 98.1 F 06/11/22 18:06 Pulse Rate 98 06/11/22 18:06 Respiratory Rate
[2022-06-11] MEDS: HYDROcodone/acetaminophen (*CRX) 5-325 MG TABLET 1 TAB PO (20:20)
[2022-06-11] MEDS: CEPHALEXIN 500 MG CAPSULE PO (20:21)
== END 2022-06-11 20:25 | disposition home or self-care (01) ==
PROVIDERS: Emergency Provider Emergency Medicine; PCP Nurse Practitioner Family
DX: L03.115 Cellulitis of right lower limb (principal); I10 Essential (primary) hypertension
CPT/HCPCS: 99283; A9270

== ENCOUNTER 2022-06-23 20:17 | Observation (INO) | payer OTHER, SELFPAY ==
[2022-06-23 20:43] VITALS: BP 204/132; PULSE 95; RESP 16; TEMP 36.3; O2SAT 96
[2022-06-23 22:50] LABS: Basophils Percent Auto 0.6 % (0.2-1.2); Eosinophils Absolute Auto 0.2 K/mm3 (0-0.3); Eosinophils Percent Auto 2.4 % (0-4.4); Hematocrit 41.3 % (37.0-47.0); Hemoglobin 13.4 g/dL (12.0-15.0); Immature Granulocyte Absolute 0.04 K/mm3 (0.00-0.031); Immature Granulocyte Percent A 0.6 % (0-0.5); Lymphocytes Absolute Auto 1.73 K/mm3 (0.9-3.2); Lymphocytes Percent Auto 24.6 % (18.3-44.2); Mean Corpuscular HGB Conc 32.4 g/dl (32-36); Mean Corpuscular Hemoglobin 33.2 pg (26-34); Mean Corpuscular Volume 102.2 fl (80-100); Mean Platelet Volume 9.7 fl (7.4-10.4); Monocytes Absolute Auto 0.6 K/mm3 (0.1-0.6); Neutrophils Absolute Auto 4.5 K/mm3 (1.3-6.7); Neutrophils Percent Auto 63.8 % (45.5-73.1); Platelet Count Result 362 k/mm3 (150-375); Red Blood Count 4.04 M/mm3 (4.2-5.4)
[2022-06-23 22:59] LABS: Alanine Aminotransferase 75 U/L (6-35); Albumin Level 4.3 g/dL (3.5-5.1); Alkaline Phosphatase 94 U/L (38-126); Anion Gap 5 mmol/L (8-16); Aspartate Amino Transferase 92 U/L (14-36); Bilirubin,Total 0.8 mg/dL (0.2-1.3); Blood Urea Nitrogen 8 mg/dL (7-17); Calcium 9.1 mg/dL (8.4-10.2); Carbon Dioxide 31 mmol/L (22-30); Chloride 96 mmol/L (98-107); Estimated CRCL calculation 142 ml/min; Estimated Glomerular Filt Rate > 60; Glucose 163 mg/dL (65-110); Potassium 4.5 mmol/L (3.4-5.0); Sodium 132 mmol/L (137-145)
--- NOTE | 2022-06-23 23:00 | PC.NURSE ---
Assumed care of patient at this time. Report from CLINT Oates at this time.
[2022-06-23 23:23] VITALS: PULSE 87; RESP 15
[2022-06-23 23:33] VITALS: PULSE 90; RESP 20
--- NOTE | 2022-06-23 23:35 | ED.SKABFB ---
HPI - Skin/Abscess/Foreign Bdy General Chief complaint: Skin/Abscess/Foreign Body Stated complaint: cellulitis? Time Seen by Provider: 06/23/22 22:28 History of Present Illness HPI narrative: Patient with history of cellulitis in her legs with recent diagnosis of cellulitis, had taken 1 week of antibiotics without improvement, presents with possible worsening of her symptoms. Endorses more swelling and pain and discomfort Related Data Home Medications Medication Instructions Recorded Confirmed duloxetine 30 mg capsule,delayed 2 cap PO HS 09/10/21 02/14/22 release lisinopril 20 mg tablet 20 mg PO DAILY 09/10/21 06/24/22 Allergies Allergy/AdvReac Type Severity Reaction Status Date / Time No Known Allergies Allergy Verified 06/23/22 23:39 Review of Systems Review of Systems: CONST: No fever. HEENT: No sore throat C/V: No chest pain RESP: No cough GI: No nausea/vomiting : No dysuria. M/S: BLE swelling, redness, pain SKIN: BLE swelling, redness, pain NEURO: [No headache] PSYCH: [No depression] [facility] Past Medical History Medical History Cellulitis Gastric ulcer Hypertension Insect bite (nonvenomous), right lower leg, sequela MRSA infection Obesity Thrush, oral Surgical History Surgical History H/O section History of incision and drainage Family History Family History Father Heart disease Social History Social History Social History: The patient has 4 children and she is . She lives with her significant other. She is a former smoker. She does not use any alcohol marijuana or illicit drugs. The patient is unemployed at this time. Her children are the durable power senior trial attorney for healthcare. Code status: full code Smoking status: Former smoker Alcohol intake: never Substance use: never Substance use type: does not use Lack of Transportation: No Lack of Food: Never True Current Housing: I Have Housing Concerned About Future Housing: No Difficulty Paying Gas/Electric Bills: No Difficulty Paying for Meds: No Currently Unemployed: No Education: High School Diploma/GED Difficulty w/ Childcare or Family Care: No Spiritual care concerns: No Exam Narrative: EXAMINATION OF ORGAN SYSTEMS/BODY AREAS: Constitutional: Vital signs per nursing GENERAL: Appears quite uncomfortable from pain HEAD: Normal with no signs of head trauma. EYES: EOMI, conjunctiva normal ENT: Hearing grossly intact LUNGS: Nonlabored breathing. HEART: [Regular rate and rhythm] ABD: [Soft], [nontender to palpation] EXT: Normal range of motion with swelling, redness, tenderness bilateral lower extremities, worst in the right ankle SKIN: Described above NEURO: [Alert and oriented x 3. No gross focal sensory or strength deficits.] PSYCH: Normal affect Course Vital Signs Vital signs: Vital Signs Temperature 97.3 F L 06/23/22 20:43 Pulse Rate 95 06/23/22 20:43 Respiratory Rate 16 06/23/22 20:43 Blood Pressure 204/132 H 06/23/22 20:43 Pulse Oximetry 96 06/23/22 20:43 Oxygen Delivery Room Air 06/23/22 20:43 Temperature 97.4 F L 06/24/22 01:53 Pulse Rate 87 06/24/22 01:53 Respiratory Rate 16 06/24/22 01:53 Blood Pressure 157/73 H 06/24/22 01:53 Pulse Oximetry 93 06/24/22 01:53 Oxygen Delivery Room Air 06/23/22 20:43 MDM - Skin/Abscess/Foreign Bdy MDM Narrative Medical decision making narrative: 1) Differential diagnosis: cellulitis, chronic venous changes, DVT (less likely bilateral) 2) Co-morbidities: Hypertension 3) External notes reviewed, reviewed. Patient was diagnosed with cellulitis, also prior diagnoses 4) History sources independently obtained from: n/a 5) Discussed management with: hospitalist 6) Independent interp
[2022-06-23 23:39] VITALS: BP 173/86; PULSE 88; RESP 16; O2SAT 98
--- NOTE | 2022-06-23 23:39 | PM.IMHP ---
H&P: HPI History of Present Illness Date/Time: 06/23/22 23:39 Chief Complaint: Redness of the leg Narrative: This is a 47-year-old female with past medical history significant for hypertension, morbid obesity. Patient presents to the emergency room due to bilateral lower extremity redness, tenderness, warmth, patient completed course of antibiotics in the outpatient setting however has noted progressive worsening of her symptoms with no improvement. Patient denies any fevers, rigors, chills, nausea, vomiting, diarrhea, has had generalized malaise. Preliminary workup has been essentially nonrevealing. Patient is been admitted for further evaluation management and treatment. Review of Systems Review of Systems: Bilateral lower extremity redness warmth tenderness Constitutional: Constitutional: Denies chills, Denies fatigue, Denies fever(s), Denies lethargy, Reports malaise, Denies night sweats and Denies poor appetite Eyes: Eyes: Denies change in vision ENT: Denies dysphagia and Denies odynophagia Cardiovascular: Cardiovascular: Denies chest pain, Denies palpitations and Denies dyspnea Respiratory: Respiratory: Denies chest congestion, Denies cough, Denies excessive phlegm production and Denies dyspnea Gastrointestinal: Gastrointestinal: Denies abdominal pain, Denies dyspepsia, Denies heartburn, Reports nausea and Denies vomiting Genitourinary: Genitourinary: Denies dysuria Musculoskeletal: Musculoskeletal: Reports other (Bilateral lower extremity swelling tenderness redness) Integumentary/Breasts: Skin/Breast: Reports rash (Erythema bilateral lower extremities) Neurologic: Denies focal weakness and Denies Sensory deficit (Neuro) Psychiatric: Psychiatric: Reports no additional psychiatric complaints and Reports as per HPI Endocrine: Endocrine: Denies cold intolerance, Denies fatigue, Denies flushing, Denies heat intolerance, Denies polyphagia, Denies polydipsia and Denies palpitations Hematologic/Lymphatic: Hematologic/Lymphatic: Reports no additional hematologic/lymphatic complaints and Reports as per HPI Allergic/Immunologic: Allergic/Immunologic: Reports no additional allergic/immunologic complaints and Reports as per HPI PMFSH Past Medical History Medical History Cellulitis Gastric ulcer Hypertension Insect bite (nonvenomous), right lower leg, sequela MRSA infection Obesity Thrush, oral Surgical History Surgical History H/O section History of incision and drainage Family History Family History Father Heart disease Social History Social History Social History: The patient has 4 children and she is . She lives with her significant other. She is a former smoker. She does not use any alcohol marijuana or illicit drugs. The patient is unemployed at this time. Her children are the durable power commercial litigation attorney for healthcare. Code status: full code Smoking status: Former smoker Alcohol intake: never Substance use: never Substance use type: does not use Lack of Transportation: No Lack of Food: Never True Current Housing: I Have Housing Concerned About Future Housing: No Difficulty Paying Gas/Electric Bills: No Difficulty Paying for Meds: No Currently Unemployed: No Education: High School Diploma/GED Difficulty w/ Childcare or Family Care: No Spiritual care concerns: No Meds Home Medications and Allergies Home Medications Medication Instructions Recorded Confirmed Type duloxetine 30 mg capsule,delayed 2 cap PO HS 09/10/21 02/14/22 History release lisinopril 20 mg tablet 20 mg PO DAILY 09/10/21 06/24/22 History Allergies Allergy/AdvReac Type Severity Reaction Status Date / Time No Known Allergies Allergy Verified 06/23/22 23:39 Vit
[2022-06-23] MEDS: ONDANSETRON INJ 4 MG/2 ML VIAL IV PUSH (23:43)
[2022-06-23 23:45] VITALS: PULSE 84; RESP 19; O2SAT 98
[2022-06-23] MEDS: MORPHINE SULFATE (*CRX) 4 MG/ML INJ IV PUSH (23:51)
[2022-06-24] VITALS (10 sets, daily range): BP systolic 145–171; BP diastolic 73–86; PULSE 83–98; RESP 14–21; TEMP 36.2–36.6; O2SAT 88–94
[2022-06-24] MEDS: traMADol HCL (*CRX) 50 MG TABLET PO (06:19)
[2022-06-24 07:19] LABS: Estimated CRCL calculation 121 ml/min; Estimated Glomerular Filt Rate > 60
[2022-06-24] MEDS: HYDROcodone/acetaminophen (*CRX) 7.5-325 MG TABLET 1 TAB PO ×2 (08:24→19:00)
[2022-06-24] MEDS: PANTOPRAZOLE 40 MG TABLET PO ×2 (08:25→21:06)
--- NOTE | 2022-06-24 11:22 | PM.IMPN ---
Progress Note: A&P Assessment and Plan (1) Cellulitis: Code(s): L03.90 - Cellulitis, unspecified Status: Acute Assessment and Plan: Admit to regular medical floor Patient failed outpatient therapy Started on vancomycin due to prior history of MRSA Supportive care -improved since yesterday. (2) Obesity: Code(s): E66.9 - Obesity, unspecified Status: Acute Assessment and Plan: Lifestyle and diet modifications (3) Hypertension: Code(s): I10 - Essential (primary) hypertension Status: Acute Assessment and Plan: Continue home meds Continue to monitor (4) Gastric ulcer: Code(s): K25.9 - Gastric ulcer, unspecified as acute or chronic, without hemorrhage or perforation Status: Acute Assessment and Plan: PPI Subjective Date/time seen: 06/24/22 11:22 No new complaints. Redness and swelling lower extremities has improved. Exam Narrative: Patient is laying in a stretcher Const: General: comfortable, no acute distress, well developed, alert, awake, ill appearing acutely, average body habitus and obese Nutritional Appearance: average body habitus and obese Orientation/consciousness: patient oriented x3 HENMT: Head: normal to inspection, normocephalic and atraumatic Ears: hearing grossly normal bilaterally Face/Nose/Sinus: normal facial exam Face and sinus: normal facial exam Eyes: General: appearance normal, both eyes and all related structures Pupils: Equal, round and reactive pupils present EOM: EOMs intact bilaterally Neck: Neck: full ROM, no lymphadenopathy and no JVD Thyroid: thyroid normal Lymphatic: no lymphadenopathy noted Resp: Effort & Inspection: normal respiratory effort and able to speak in complete sentences Auscultation: clear to auscultation bilaterally Cardio: Jugular venous distension: no JVD Rate: regular rate Rhythm: regular rhythm Heart sounds: S1 normal heart sound present and S2 normal heart sound present : General: Yes deferred Skin: General skin exam: rashes (Bilateral lower extremities erythematous) Rashes: rashes noted (Bilateral lower extremities erythematous) Wounds: no wounds Neuro: General: patient oriented x3, CN's II-XI intact bilaterally and Unable to assess gait Cranial nerves: Yes CN's II-XII intact bilaterally and Yes Equal, round and reactive pupils present Cognition (Neuro): normal cognition Speech: normal speech Gait exam (Neuro): Unable to assess gait Motor exam (neuro): 5/5 motor strength present throughout Sensory Exam: No Sensory deficit (Neuro) Extrem: General: edema (Redness, tenderness, warmth) bilateral Objective Data Vital Signs Vital Signs: Vital Signs - 24 hr 06/23/22 20:43 06/23/22 23:23 06/23/22 23:33 Temperature 97.3 F L Pulse Rate 95 87 90 Respiratory Rate 16 15 20 Blood Pressure 204/132 H Pulse Oximetry 96 Oxygen Delivery Room Air 06/23/22 23:39 06/23/22 23:45 06/24/22 00:00 Temperature Pulse Rate 88 84 86 Respiratory Rate 16 19 14 Blood Pressure 173/86 H Pulse Oximetry 98 98 92 Oxygen Delivery 06/24/22 00:01 06/24/22 01:02 06/24/22 01:53 Temperature 97.4 F L Pulse Rate 98 85 87 Respiratory Rate 21 H 15 16 Blood Pressure 171/79 H 158/73 H 157/73 H Pulse Oximetry 88 L 92 93 Oxygen Delivery 06/24/22 01:35 06/24/22 05:49 06/24/22 08:00 Temperature 97.8 F Pulse Rate 87 96 Respiratory Rate 16 16 Blood Pressure 163/86 H Pulse Oximetry 93 93 Oxygen Delivery Room Air Room Air 06/24/22 11:02 Temperature Pulse Rate Respiratory Rate Blood Pressure Pulse Oximetry 94 Oxygen Delivery Room Air Intake/Output Intake/Output: Intake & Output 06/21/22 06/22/22 06/23/22 06/24/22 23:59 23:59 23:59 23:59 Intake Total 240 Output Total 0 Balance 240 Meds/Results Medications: Active Medications Generic Name Dose Route Start Last Admin Trade Name Freq PRN Reason Stop Dose Admin Acetaminophen 1,
[2022-06-24] MEDS: ENOXAPARIN 40 MG/0.4 ML SYRINGE SUB-Q (12:39)
[2022-06-24] MEDS: ACETAMINOPHEN 500 MG TABLET 1000 MG PO (14:00)
[2022-06-24] MEDS: ONDANSETRON INJ 4 MG/2 ML VIAL IV PUSH (23:21)
[2022-06-25] MEDS: HYDROcodone/acetaminophen (*CRX) 7.5-325 MG TABLET 1 TAB PO ×3 (01:11→15:28)
[2022-06-25] MEDS: DULoxetine HCL 60 MG CAPSULE.DR PO ×2 (01:43→20:24)
[2022-06-25 04:54] VITALS: BP 147/76; PULSE 85; RESP 14; TEMP 36.2; O2SAT 93
[2022-06-25 09:10] LABS: Estimated CRCL calculation 105 ml/min; Estimated Glomerular Filt Rate > 60
[2022-06-25 09:40] LABS: Vancomycin Trough 10.3 ug/mL (10.0-20.0)
[2022-06-25] MEDS: ONDANSETRON INJ 4 MG/2 ML VIAL IV PUSH ×3 (09:41→18:30)
[2022-06-25] MEDS: ENOXAPARIN 40 MG/0.4 ML SYRINGE SUB-Q (09:44)
[2022-06-25] MEDS: FLUTICASONE PROPIONATE 0.05% NA SPR 16 GM BTL (*BKC) 1 SPRAY NASAL ×2 (09:44→20:24)
[2022-06-25] MEDS: PANTOPRAZOLE 40 MG TABLET PO ×2 (09:45→20:24)
[2022-06-25] MEDS: traMADol HCL (*CRX) 50 MG TABLET PO ×2 (10:16→18:31)
--- NOTE | 2022-06-25 11:23 | PC.NURSE ---
called pharmacy 2x about lisinopril tab.
[2022-06-25] MEDS: lisinopriL 20 MG TABLET PO (11:41)
[2022-06-25] MEDS: ACETAMINOPHEN 500 MG TABLET 1000 MG PO (13:33)
[2022-06-25] MEDS: DOXYCYCLINE 100 MG/NS 100 ML 100 MG/100 ML BAG IVPB (13:34)
[2022-06-25 14:00] VITALS: BP 126/65; PULSE 77; RESP 18; TEMP 36.3; O2SAT 92
--- NOTE | 2022-06-25 15:10 | PM.IMPN ---
Progress Note: A&P Assessment and Plan (1) Cellulitis: Code(s): L03.90 - Cellulitis, unspecified Status: Acute Assessment and Plan: Admit to regular medical floor Patient failed outpatient therapy vancomycin causing alot of nausea and vomiting IV doxycycline started (2) Obesity: Code(s): E66.9 - Obesity, unspecified Status: Acute Assessment and Plan: Lifestyle and diet modifications (3) Hypertension: Code(s): I10 - Essential (primary) hypertension Status: Acute Assessment and Plan: Continue home meds (4) Gastric ulcer: Code(s): K25.9 - Gastric ulcer, unspecified as acute or chronic, without hemorrhage or perforation Status: Acute Assessment and Plan: PPI Subjective Date/time seen: 06/25/22 15:10 47-year-old female with past medical history significant for hypertension, morbid obesity.? Patient presents to the emergency room due to bilateral lower extremity redness, tenderness, warmth, patient completed course of antibiotics in the outpatient setting however has noted progressive worsening of her symptoms with no improvement.?? Pt admitted for cellulitis having alot of vomiting for 2 days iv vancomycin stopped and iv doxycycline started leg improving gradually Review of Systems Review of Systems: Redness swelling improving Exam Const: General: comfortable, no acute distress, well developed, alert, awake, ill appearing acutely, average body habitus and obese Nutritional Appearance: average body habitus and obese Orientation/consciousness: patient oriented x3 Resp: Effort & Inspection: normal respiratory effort and able to speak in complete sentences Auscultation: clear to auscultation bilaterally Cardio: Jugular venous distension: no JVD Rate: regular rate Rhythm: regular rhythm Heart sounds: S1 normal heart sound present and S2 normal heart sound present Skin: General skin exam: rashes (Bilateral lower extremities erythematous) Rashes: rashes noted (Bilateral lower extremities erythematous) Wounds: no wounds Neuro: General: patient oriented x3, CN's II-XI intact bilaterally and Unable to assess gait Cranial nerves: Yes CN's II-XII intact bilaterally and Yes Equal, round and reactive pupils present Cognition (Neuro): normal cognition Speech: normal speech Gait exam (Neuro): Unable to assess gait Motor exam (neuro): 5/5 motor strength present throughout Sensory Exam: No Sensory deficit (Neuro) Extrem: General: edema (Redness, tenderness, warmth) bilateral Objective Data Vital Signs Vital Signs: Vital Signs - 24 hr 06/24/22 21:35 06/24/22 20:00 06/25/22 04:54 Temperature 36.2 C L 36.2 C L Pulse Rate 95 95 85 Respiratory Rate 16 16 14 Blood Pressure 150/78 H 147/76 H Pulse Oximetry 94 94 93 Oxygen Delivery Room Air 06/25/22 09:50 06/25/22 14:00 Temperature 36.3 C L Pulse Rate 77 Respiratory Rate 18 Blood Pressure 126/65 Pulse Oximetry 92 Oxygen Delivery Room Air Intake/Output Intake/Output: Intake & Output 06/22/22 06/23/22 06/24/22 06/25/22 23:59 23:59 23:59 23:59 Intake Total 2620 1450 Output Total 0 Balance 2620 1450 Meds/Results Medications: Active Medications Generic Name Dose Route Start Last Admin Trade Name Freq PRN Reason Stop Dose Admin Acetaminophen 1,000 mg 06/24/22 01:55 06/25/22 13:33 Acetaminophen 500 Mg Tablet PO 1,000 mg Q6H PRN Administration Mild Pain (1-3) or Fever Hydrocodone Bitart/Acetaminophen 1 tab 06/24/22 08:03 06/25/22 09:42 Hydrocodone/Acetaminophen (*Crx) 7.5-325 Mg Tablet PO 1 tab Q6H PRN Administration Pain Rated 7-10 Al Hydrox/Mg Hydrox/Simethicone 30 ml 06/24/22 01:55 Mag Hydrox/Al Hydrox/Simeth 30 Ml Udc PO Q6H PRN Indigestion Duloxetine HCl 60 mg 06/24/22 23:00 06/25/22 01:43 Duloxetine Hcl 60 Mg Capsule.Dr PO 60 mg HS MASON Administration Enoxaparin Sodium 40 mg 06/24/22 09:00
[2022-06-25 21:53] VITALS: BP 142/77; PULSE 78; RESP 16; TEMP 36.7; O2SAT 96
[2022-06-26] MEDS: DOXYCYCLINE 100 MG/NS 100 ML 100 MG/100 ML BAG IVPB ×2 (01:20→11:22)
[2022-06-26] MEDS: HYDROcodone/acetaminophen (*CRX) 7.5-325 MG TABLET 1 TAB PO ×2 (01:27→08:57)
[2022-06-26 06:00] VITALS: BP 108/56; PULSE 78; RESP 16; TEMP 36.9; O2SAT 94
[2022-06-26 07:51] LABS: Hematocrit 41.9 % (37.0-47.0); Hemoglobin 13.1 g/dL (12.0-15.0); Mean Corpuscular HGB Conc 31.3 g/dl (32-36); Mean Corpuscular Volume 105.5 fl (80-100); Platelet Count Result 294 k/mm3 (150-375); Red Blood Count 3.97 M/mm3 (4.2-5.4); Red Cell Distribution Width 14.1 % (11.5-14.5); White Blood Count 6.7 K/mm3 (4.5-10.0)
[2022-06-26 08:15] LABS: Anion Gap 2 mmol/L (8-16); Blood Urea Nitrogen 6 mg/dL (7-17); Calcium 8.9 mg/dL (8.4-10.2); Carbon Dioxide 35 mmol/L (22-30); Chloride 99 mmol/L (98-107); Estimated CRCL calculation 121 ml/min; Estimated Glomerular Filt Rate > 60; Glucose 122 mg/dL (65-110); Potassium 4.2 mmol/L (3.4-5.0); Sodium 136 mmol/L (137-145)
[2022-06-26 08:35] VITALS: O2SAT 91
[2022-06-26] MEDS: lisinopriL 20 MG TABLET PO (08:54)
[2022-06-26] MEDS: ENOXAPARIN 40 MG/0.4 ML SYRINGE SUB-Q (08:54)
[2022-06-26] MEDS: PANTOPRAZOLE 40 MG TABLET PO (08:54)
[2022-06-26] MEDS: FLUTICASONE PROPIONATE 0.05% NA SPR 16 GM BTL (*BKC) 1 SPRAY NASAL (08:54)
--- NOTE | 2022-06-26 11:18 | PM.DS ---
DS: Admitting Diagnosis Discharge Date 06/26/2022 Admitting Diagnosis Bilateral lower extremity cellulitis DS: Discharge Diagnosis Discharge Diagnosis (1) Cellulitis: Code(s): L03.90 - Cellulitis, unspecified Status: Acute (2) Obesity: Code(s): E66.9 - Obesity, unspecified Status: Acute (3) Hypertension: Code(s): I10 - Essential (primary) hypertension Status: Acute DS: Summary Hospital Course Hospital Course: 47-year-old female with past medical history significant for hypertension, morbid obesity.? Patient presents to the emergency room due to bilateral lower extremity redness, tenderness, warmth, patient completed course of antibiotics in the outpatient setting however has noted progressive worsening of her symptoms with no improvement.?? Pt admitted for cellulitis having alot of vomiting for 2 days iv vancomycin stopped and iv doxycycline started leg improving gradually. Patient is stable and is being discharged home with oral doxycycline today Time Spent with Patient Time attestation: Total time spent providing and/or coordinating discharge services: DS: Data Data Completed and Pending Labs on day of discharge: Labs from last 24 hours 06/26/22 06/26/22 07:37 07:37 WBC 6.7 RBC 3.97 L Hgb 13.1 Hct 41.9 MCV 105.5 H MCH 33.0 MCHC 31.3 L RDW 14.1 Plt Count 294 MPV 9.0 Sodium 136 L Potassium 4.2 Chloride 99 Carbon Dioxide 35 H Anion Gap 2 L BUN 6 L Creatinine 0.60 L Estim Creat Clear Calc 121 Estimated GFR > 60 Glucose 122 H Calcium 8.9 Preliminary micro results at discharge 06/23/22 23:09 Blood Culture - Preliminary Blood 06/23/22 22:40 Blood Culture - Preliminary Blood Discharge Plan Discharge Discharging Clinician: Best Ibrahim Anticipated Discharge Date/Time: 06/26/22 11:10 Patient Disposition: Home, Self-Care Activity: may shower Diet: heart healthy Patient Instructions: Antibiotic Form Stand Alone Forms: General Discharge Information Follow-up/Referrals: Deysi,AVIS Simmons [Primary Care Provider] - Discharge Medications: New doxycycline hyclate 100 mg capsule 100 mg PO BID Qty: 14 0RF Continued lisinopril 20 mg tablet 20 mg PO DAILY duloxetine 30 mg capsule,delayed release(DR/EC) 60 cap PO HS Date of admission: 06/24/22 09:55 Primary Care Provider: DeysiIris Admitting Provider: Zeb Macdonald V. Attending physician on admission: Best Ibrahim Condition: Serious
== END 2022-06-26 13:00 | disposition home or self-care (01) ==
LOC: ANHED 23:16 → ANH3MEDSUR 06-24 01:16
PROVIDERS: Family Medicine; Admitting Provider Internal Medicine; Emergency Provider Emergency Medicine; PCP Nurse Practitioner Family; Visit Provider Hospitalist
DX: L03.116 Cellulitis of left lower limb (principal); L03.115 Cellulitis of right lower limb; I10 Essential (primary) hypertension; K25.9 Gastric ulcer, unspecified as acute or chronic, without hemorrhage or perforation; E66.01 Morbid (severe) obesity due to excess calories; Z68.41 Body mass index [BMI] 40.0-44.9, adult; Z87.891 Personal history of nicotine dependence; Z86.14 Personal history of Methicillin resistant Staphylococcus aureus infection; Z79.899 Other long term (current) drug therapy
CPT/HCPCS: 36415; 80048; 80053; 80202; 82565; 85025; 85027; 87040; 96365; 96366; 96367; 96372; 96374; 96375; 96376; 99285; A9270; G0378; G0379; J1650; J2270; J2405; J3370

== ENCOUNTER 2022-07-03 14:55 | Emergency (ER) | payer OTHER, SELFPAY ==
[2022-07-03 15:01] VITALS: BP 154/73; PULSE 87; RESP 16; TEMP 36.1; O2SAT 97
[2022-07-03 16:30] VITALS: BP 146/71; PULSE 89; RESP 18; TEMP 36.4; O2SAT 97
--- NOTE | 2022-07-03 19:20 | PC.NURSE ---
patient stated wait was too long and left from triage area
== END 2022-07-03 19:20 | disposition left against medical advice (07) ==
PROVIDERS: PCP Nurse Practitioner Family
DX: M79.605 Pain in left leg (principal); M79.604 Pain in right leg
CPT/HCPCS: 99199

== ENCOUNTER 2022-07-04 14:34 | Emergency (ER) | payer OTHER, SELFPAY ==
--- NOTE | ~2022-07-04 | XR_ITS ---
XR tibia fibula LT 2V DATE: 07/04/2022 16:35 INDICATION: Cellulitis TECHNIQUE: AP and lateral views of the lower leg COMPARISON: None FINDINGS: Normal alignment of the knee and ankle joints. No fracture or dislocation, periosteal react ion or bone destruction of the tibia or fibula. No subcutaneous emphysema or radiopaque soft tissue f oreign body. IMPRESSION: No significant bony abnormality of the tibia or fibula. Reviewed, dictated and finalized at location B.
--- NOTE | ~2022-07-04 | US_ITS ---
EXAMINATION: US venous doppler [facility] DATE: 07/04/2022 17:19 INDICATION: One week of worsening erythema and swelling of the bilateral lower limbs TECHNIQUE: Grayscale ultrasound images without and with compression and Doppler ultrasound images of the bilateral lower extremity veins were obtained. COMPARISON: None. FINDINGS: The visualized portions of right common femoral vein, profunda (deep) femoral vein, femoral vein, pop liteal vein, posterior tibial veins, peroneal veins and greater saphenous vein outflow are patent. The visualized portions of left common femoral vein, profunda femoral vein, femoral vein, popliteal v ein, posterior tibial veins and greater saphenous vein outflow are patent. The left peroneal veins we re unable to be visualized. IMPRESSION: 1. No deep venous thrombosis in either lower limb. Reviewed, dictated and finalized at location A.
--- NOTE | ~2022-07-04 | XR_ITS ---
XR tibia fibula RT 2V DATE: 07/04/2022 16:35 INDICATION: Cellulitis TECHNIQUE: AP and lateral views COMPARISON: None FINDINGS: No fracture or dislocation, periosteal reaction or bone destruction of the tibia or fibula. Normal alignment at the knee and ankle joints. No radiopaque soft tissue foreign body or subcutaneous emphysema is detected. IMPRESSION: No significant abnormality Reviewed, dictated and finalized at location B. IMPRESSION: No significant abnormality
[2022-07-04 14:39] VITALS: BP 164/72; PULSE 89; RESP 16; TEMP 36; O2SAT 96
[2022-07-04 15:11] LABS: Basophils Percent Auto 0.4 % (0.2-1.2); Eosinophils Absolute Auto 0.2 K/mm3 (0-0.3); Eosinophils Percent Auto 1.6 % (0-4.4); Hematocrit 41.5 % (37.0-47.0); Hemoglobin 13.4 g/dL (12.0-15.0); Immature Granulocyte Absolute 0.06 K/mm3 (0.00-0.031); Immature Granulocyte Percent A 0.7 % (0-0.5); Lymphocytes Absolute Auto 1.82 K/mm3 (0.9-3.2); Lymphocytes Percent Auto 19.9 % (18.3-44.2); Mean Corpuscular HGB Conc 32.3 g/dl (32-36); Mean Platelet Volume 9.7 fl (7.4-10.4); Monocytes Absolute Auto 0.7 K/mm3 (0.1-0.6); Monocytes Percent Auto 7.4 % (2.6-8.5); Neutrophils Absolute Auto 6.4 K/mm3 (1.3-6.7); Platelet Count Result 358 k/mm3 (150-375); Red Blood Count 4.19 M/mm3 (4.2-5.4); Red Cell Distribution Width 13.5 % (11.5-14.5); White Blood Count 9.2 K/mm3 (4.5-10.0)
[2022-07-04 15:22] LABS: Alanine Aminotransferase 77 U/L (6-35); Albumin Level 4.2 g/dL (3.5-5.1); Alkaline Phosphatase 103 U/L (38-126); Anion Gap 4 mmol/L (8-16); Aspartate Amino Transferase 75 U/L (14-36); Bilirubin,Total 0.5 mg/dL (0.2-1.3); Blood Urea Nitrogen 12 mg/dL (7-17); Calcium 9.2 mg/dL (8.4-10.2); Carbon Dioxide 31 mmol/L (22-30); Chloride 102 mmol/L (98-107); Estimated CRCL calculation 105 ml/min; Estimated Glomerular Filt Rate > 60; Glucose 131 mg/dL (65-110); Potassium 4.3 mmol/L (3.4-5.0); Sodium 137 mmol/L (137-145)
--- NOTE | 2022-07-04 16:13 | ED.GENADULT ---
HPI - General Adult General Chief complaint: Wound/Laceration <Bakari Alva PA-C - Last Filed: 07/04/22 18:51> Stated complaint: cellulitis <SRAVAN Del Real Last Filed: 07/04/22 18:51> Time Seen by Provider: 07/04/22 15:48 <SRAVAN Del Real Last Filed: 07/04/22 18:51> Source: patient <SRAVAN Del Real Last Filed: 07/04/22 18:51> Mode of arrival: ambulatory <SRAVAN Del Real Last Filed: 07/04/22 18:51> Limitations: no limitations <SRAVAN Del Real Last Filed: 07/04/22 18:51> History of Present Illness HPI narrative: This is a 47-year-old female presents the ED with chief complaint of bilateral lower extremity redness and swelling x2 weeks. Patient states she was initially seen in the ED and given outpatient treatment which failed. She was then admitted to the hospital and discharged about a week ago for cellulitis. Given IV antibiotics in the hospital and given prescription for doxycycline. She has completed her doxycycline prescription. She feels that she got minimally better in the hospital, symptoms have worsened ever since going home. Reports redness has spread from the calves up towards the knees and thighs. Denies any new drugs, soaps, allergic contacts. <Bakari Alva PA-C - Last Filed: 07/04/22 18:51> Related Data Home medications: Home Medications Medication Instructions Recorded Confirmed duloxetine 30 mg capsule,delayed 60 cap PO HS 09/10/21 06/24/22 release lisinopril 20 mg tablet 20 mg PO DAILY 09/10/21 06/24/22 <SRAVAN Del Real Last Filed: 07/04/22 18:51> Allergies/adverse reactions: Allergies Allergy/AdvReac Type Severity Reaction Status Date / Time No Known Allergies Allergy Verified 07/03/22 14:56 <SRAVAN Del Real Last Filed: 07/04/22 18:51> Review of Systems Review of Systems: CONSTITUTIONAL: Denies fever, chills, or sweats. EYES: Denies visual changes, redness, or discharge. ENT: Denies rhinorrhea, congestion, sore throat, or otalgia. CARDIOVASCULAR: Denies chest pain, palpitations, or edema. RESPIRATORY: Denies cough or dyspnea. GASTROINTESTINAL: Denies abdominal pain, nausea, vomiting, or diarrhea. GENITOURINARY: Denies dysuria or hematuria. SKIN: Denies rash or itching. MUSCULOSKELETAL: Denies back pain, joint pain, or myalgia. NEUROLOGIC: Denies headache, numbness, dizziness, or weakness. PSYCHIATRIC: Denies anxiety or depression. <Bakari Alva PA-C - Last Filed: 07/04/22 18:51> [facility] Past Medical History Medical History: Medical History Cellulitis Gastric ulcer Hypertension Insect bite (nonvenomous), right lower leg, sequela MRSA infection Obesity Thrush, oral <Bakari Alva PA-C - Last Filed: 07/04/22 18:51> Surgical History Surgical History: Surgical History H/O section History of incision and drainage <Bakari Alva PA-C - Last Filed: 07/04/22 18:51> Family History Family History: Family History Father Heart disease <Bakari Alva PA-C - Last Filed: 07/04/22 18:51> Social History Social History: Social History Social History: The patient has 4 children and she is . She lives with her significant other. She is a former smoker. She does not use any alcohol marijuana or illicit drugs. The patient is unemployed at this time. 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 Code status: full code Smoking status: Former smoker Tobacco type: cigarettes Alcohol intake: never Substance use: never Substance use type: does not use Lack of Transportation: No Lack of Food: Never True Current Housing: I Have Housing Concerned About Future Housing: No Difficulty Paying Gas/Electric Bills: No Diffic
== END 2022-07-04 18:22 | disposition home or self-care (01) ==
PROVIDERS: Emergency Medicine; Emergency Provider Physician Assistant; PCP Nurse Practitioner Family
DX: R22.43 Localized swelling, mass and lump, lower limb, bilateral (principal); I10 Essential (primary) hypertension; Z87.891 Personal history of nicotine dependence
CPT/HCPCS: 36415; 73590; 80053; 85025; 93970; 99284